=== PATIENT | female | born 1935 | race Caucasian/White ===

== ENCOUNTER 2017-03-17 15:15 | Outpatient (CLI) | payer MEDICARE ==
--- NOTE | 2017-03-18 10:32 | Ultrasound Report ---
BLADDER ULTRASOUND: 03/17/2017 CLINICAL INDICATION: Botox injection for neurogenic bladder, evaluate retention. TECHNIQUE: Real-time scanning was performed with marketing representative static images obtained. FINDINGS: Pre void, the urinary bladder measures 10.1 x 6.9 x 5.7 cm, yielding a prevoid volume of 2 07 mL. Bilateral ureteral jets are visualized. There is a possible calculus or calcified polyp fouzia g the posterior wall of the urinary bladder, measuring 6 mm. Postvoid residual is 106 mL. IMPRESSION: A 106 ML POSTVOID RESIDUAL. POSSIBLE BLADDER CALCULUS OR CALCIFIED POLYP ALONG THE POST ERIOR WALL. CONSIDER CORRELATION WITH CYSTOSCOPY. JOB #: [id number] EXT JOB #:[id number]
== END 2017-03-17 15:16 | disposition home or self-care (01) ==
LOC: DI 15:15
PROVIDERS: ATTEND Registered Nurse
DX: R33.9 Retention of urine, unspecified (principal)
CPT/HCPCS: 76857

== ENCOUNTER 2017-04-27 18:06 | Outpatient (CLI) | payer MEDICARE | END 2017-04-27 18:07 | disposition critical access hospital (66) | LOC: EMS 18:06 | PROVIDERS: ATTEND Surgery | DX: R55 Syncope and collapse (principal) | CPT/HCPCS: A0425; A0427 ==

== ENCOUNTER 2017-04-27 19:06 | Emergency (ER) | payer MEDICARE ==
[2017-04-27] MEDS ORDERED: SODIUM CHLORIDE 0.9% 1,000 ML IV ONE ×2 (19:15)
--- NOTE | 2017-04-27 19:20 | ED Physician Documentation ---
PD HPI SYNCOPE - Stated complaint Stated Complaint: SYNCOPE - Chief complaint Chief Complaint: Neuro - History obtained from History obtained from: Patient, Family, EMS - History of Present Illness Witnessed: Witnessed Timing - onset: Today Duration: Seconds (10) Preceding symptoms: Unknown Associated symptoms: No: Seizure, Incontinant of urine, Incontinant of stool, Headache, Vision changes, Chest pain, Palpitations, Diaphoresis, Dyspnea, Nausea / vomiting, Abdominal pain Contributing factors: Other (was on the toilet). No: Recent med change Injury occurred: None (slid off toilet. 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 (NS with EMS, EMS states BP 80/40 on scene.) Similar symptoms before: Diagnosis (states has passed out before) Review of Systems Ten Systems: 10 systems reviewed and negative Constitutional: denies: Fever, Chills Ears: denies: Ear pain Nose: denies: Rhinorrhea / runny nose, Congestion Cardiac: denies: Chest pain / pressure Respiratory: denies: Cough GI: denies: Abdominal Pain, Nausea, Vomiting, Diarrhea Skin: denies: Rash Musculoskeletal: reports: Neck pain (chronic, unchanged.) Neurologic: denies: Generalized weakness, Focal weakness, Numbness, Seizure, Confused, Altered mental status PD PAST MEDICAL HISTORY - Past Medical History Past Medical History: Yes Neuro: CVA, Other : Other Psych: Depression - Past Surgical History 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, 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 HEENT: Tonsil/Adenoidectomy - Present Medications Home Medications: Ambulatory Orders Medication Instructions Recorded Confirmed Aspirin [Aspir 81] 81 mg PO DAILY 02/07/14 12/27/15 Omeprazole [PriLOSEC] 20 mg PO DAILY 02/07/14 12/27/15 Sertraline [Zoloft] 100 mg PO DAILY 02/07/14 12/27/15 Cholecalciferol [Vitamin D3] 5,000 mg PO DAILY 12/27/15 12/27/15 Melatonin 5 mg PO DAILY 12/27/15 12/27/15 Cephalexin [Keflex] 500 mg PO Q6H #28 capsule 04/27/17 - Allergies Allergies/Adverse Reactions: Allergies Allergy/AdvReac Type Severity Reaction Status Date / Time No Known Drug Allergies Allergy Verified 04/27/17 19:14 - Social History Does the pt smoke?: No Smoking Status: Never smoker Does the pt drink ETOH?: Yes Does the pt have substance abuse?: No - Immunizations Immunizations are current?: Yes - POLST Patient has POLST: No PD ED PE NORMAL - Vitals Vital signs reviewed: Yes - General General: Alert and oriented X 3, No acute distress, Well developed/nourished - HEENT HEENT: PERRL, EOMI, Moist mucous membranes, Pharynx benign - Neck Neck: Supple, no meningeal sign - Cardiac Cardiac: RRR, Strong equal pulses - Respiratory Respiratory: No respiratory distress, Clear bilaterally - Abdomen Abdomen: Soft, Non tender, Non distended - Derm Derm: Warm and dry, No rash - Extremities Extremities: No edema, No calf tenderness / cord - Neuro Neuro: Alert and oriented X 3, loading manager 2-12 intact, No motor deficit, No sensory deficit, Normal speech Eye Opening: Spontaneous Motor: Obeys Commands Verbal: Oriented GCS Score: 15 - Psych Psych: Normal mood, Normal affect Results - Vitals Vitals: Vital Signs - 24 hr 04/27/17 04/27/17 19:08 21:35 Temperature 36.2 C L 36.5 C Heart Rate 71 78 Respiratory 18 16 Rate Blood Pressure 116/58 L 137/66 H O2 Saturation 96 98 Oxygen O2 Source Room air - EKG (time done) 1925 Rate: Rate (enter#) (69) Rhythm: NSR, SVT Intervals: Normal VT QRS: Normal Ischemia: Normal ST segments, Other (early r wave transition.) - Labs Labs: Laboratory Tests 04/27/17 04/27/17 04/27/17 19:15 20:00 20:00 WBC 10.0 RBC 4.14 L Hgb 12.8 Hct 38.6 MCV 93.1 MCH 30.9 MCHC 33.2 RDW 14.6 Plt Count 239 MPV 7.8 L Neut # 8.4 H Lymph # 1.0 L [place] # 0.6 Eos # 0.1 Baso # 0.0 Absolute Nucleated RBC 0.00 Nucleated RBC % 0.0 Sodium 143 Potassium 3.5 Chloride 109 Carbon Dioxide 24 Anion Gap 10.0 BUN 19 Creatinine 0.9 Estimated GFR (MDRD) 60 L Glucose 105 H Calcium 8.1 L Total Bilirubin 0.4 AST 15 ALT 10 Alkaline Phosphatase 34 L Troponin I < 0.04 Total Protein 5.9 L Albumin 3.2 Globulin 2.7 Albumin/Globulin Ratio 1.2 Lipase 30 Urine Color Urine Clarity Urine pH Ur Specific [place] Urine Protein Urine Glucose (UA) Urine Ketones Urine Occult Blood Urine Nitrite Urine Bilirubin Urine Urobilinogen Ur Leukocyte Esterase Urine RBC Urine WBC Ur Squamous Epith Cells Urine Bacteria Ur Microscopic Review Urine Culture Comments 04/27/17 20:45 WBC RBC Hgb Hct MCV MCH MCHC RDW Plt Count MPV Neut # Lymph # [place] # Eos # Baso # Absolute Nucleated RBC Nucleated RBC % Sodium Potassium Chloride Carbon Dioxide Anion Gap BUN Creatinine Estimated GFR (MDRD) Glucose Calcium Total Bilirubin AST ALT Alkaline Phosphatase Troponin I Total Protein Albumin Globulin Albumin/Globulin Ratio Lipase Urine Color YELLOW Urine Clarity HAZY Urine pH 6.0 Ur Specific [place] 1.025 Urine Protein NEGATIVE Urine Glucose (UA) NEGATIVE Urine Ketones TRACE Urine Occult Blood TRACE-LYSE Urine Nitrite POSITIVE H Urine Bilirubin NEGATIVE Urine Urobilinogen 0.2 (NORMAL) Ur Leukocyte Esterase TRACE H Urine RBC 0-5 Urine WBC 6-10 H Ur Squamous Epith Cells FEW Squamous Urine Bacteria Many H Ur Microscopic Review INDICATED Urine Culture Comments INDICATED - Rads (name of study) cxr Radiology: Prelim report reviewed, EMP read contemporaneously, See rad report ( no acute disease) PD MEDICAL DECISION MAKING - ED course Complexity details: reviewed old records, reviewed results, re-evaluated patient , considered differential, d/w patient, d/w family ED course: Patient is an 81-year-old female who presents to the emergency department with what sounds like vasovagal syncope after passing out standing up from the toilet. No injury. Does have a UTI and given Rocephin for this. Was initially hypotensive, responded well to fluids. She feels to her normal baseline at this point. She does not want stay in the hospital. She is well- appearing, nontoxic. Afebrile. Has been is comfortable taking her home at this time. Patient and family counseled regarding signs and symptoms for which I believe and urgent re-evaluation would be necessary. Patient with good understanding of and agreement to plan and is comfortable going home at this time This document was made in part using voice recognition software. While efforts are made to proofread this document, sound alike and grammatical errors may occur. Departure - Departure Disposition: 01 Home, Self Care Clinical Impression: Vasovagal syncope, Dehydration Urinary tract infection Qualifiers: Urinary tract infection type: acute cystitis Hematuria presence: without hematuria Qualified Code(s): N30.00 - Acute cystitis without hematuria Condition: Good Instructions: ED Syncope Vasovagal, ED UTI Cystitis Female Follow-Up: Millie Frazier ARNP [Primary Care Provider] - Within 1 week Prescriptions: Cephalexin [Keflex] 500 mg PO Q6H #28 capsule Comments: Take all antibiotics until gone. Return if you worsen. Drink plenty of fluids at home.
--- NOTE | 2017-04-27 20:09 | XRAY Preliminary Report ---
Exam: XR CHEST 1 VIEW IMPRESSION: No acute cardiopulmonary disease is seen. [facility] SITE ID: [id number]
--- NOTE | 2017-04-27 20:11 | XRAY Report ---
EXAM: CHEST RADIOGRAPHY EXAM DATE: 04/27/2017 07:58 PM. CLINICAL HISTORY: Syncope. COMPARISON: Chest 10/27/2015. TECHNIQUE: 1 view. FINDINGS: Lungs/Pleura: No focal opacities evident. No pleural effusion. No pneumothorax. Mediastinum: Normal heart size. Aortopulmonary window calcified lymph node again noted. IMPRESSION: No acute cardiopulmonary disease is seen. [facility] Referring Provider Line: [phone] SITE ID: [id number]
[2017-04-27 20:35] LABS: BASOPHILS % (AUTO) 0.5 %; EOSINOPHILS # (AUTO) 0.1 10^3/uL (0.0-0.7); EOSINOPHILS % (AUTO) 0.7 %; HCT - HEMATOCRIT 38.6 % (37.0-47.0); HGB - HEMOGLOBIN 12.8 g/dL (12.0-16.0); LYMPHOCYTES % (AUTO) 9.9 %; MEAN CORPUSCULAR HEMOGLOBIN 30.9 pg (27.0-31.0); MEAN CORPUSCULAR HGB CONC 33.2 g/dL (32.0-36.0); MEAN CORPUSCULAR VOLUME 93.1 fL (81.0-99.0); MEAN PLATELET VOLUME 7.8 fL (7.9-10.8); MONOCYTES # (AUTO) 0.6 10^3/uL (0.0-1.0); MONOCYTES % (AUTO) 5.6 %; NEUTROPHILS # (AUTO) 8.4 10^3/uL (1.5-6.6); NEUTROPHILS % (AUTO) 83.3 %; RED BLOOD COUNT 4.14 10^6/uL (4.20-5.40); RED CELL DISTRIBUTION WIDTH 14.6 % (12.0-15.0)
[2017-04-27 20:40] LABS: ALBUMIN/GLOBULIN RATIO 1.2 (1.0-2.2); BILIRUBIN,TOTAL 0.4 mg/dL (0.2-1.0); CALCIUM 8.1 mg/dL (8.5-10.3); CREATININE 0.9 mg/dL (0.4-1.0); POTASSIUM 3.5 mmol/L (3.5-5.0); TOTAL PROTEIN 5.9 g/dL (6.7-8.2)
[2017-04-27 20:57] LABS: BILIRUBIN,URINE NEGATIVE (NEGATIVE)
[2017-04-27 21:02] LABS: UA w/ MICROSCOPIC CHARGE YES
[2017-04-27] MEDS ORDERED: cefTRIAXone 1 GM VIAL IVP STA (21:08)
[2017-04-27 21:15] LABS: UR CULTURE IF IND INDICATED
[2017-04-27] MEDS ORDERED: cefTRIAXone 1 GM VIAL ONE (21:21)
[2017-04-27 21:36] VITALS: BP 137/66
== END 2017-04-27 21:30 | disposition home or self-care (01) ==
LOC: EDUNIT# → EDBD → ED 19:06
DX: R55 Syncope and collapse (principal); E86.0 Dehydration; N30.00 Acute cystitis without hematuria; Z86.73 Personal history of transient ischemic attack (TIA), and cerebral infarction without residual deficits; Z79.82 Long term (current) use of aspirin
CPT/HCPCS: 36415; 51701; 71010; 80053; 81001; 81003; 83690; 84484; 85025; 87077; 87086; 93005; 96361; 96374; 99284

== ENCOUNTER 2017-08-21 14:52 | Outpatient (CLI) | payer MEDICARE ==
--- NOTE | 2017-08-22 10:20 | XRAY Report ---
LEFT RIBS: 08/21/2017 COMPARISON: Frontal chest 04/27/2017. INDICATION: Fall, rib pain, back pain. TECHNIQUE: Three views. FINDINGS: There is slight cortical irregularity of the left lateral 7th rib, which may represent a fracture. No pneumothorax. No other acute findings. IMPRESSION: LIKELY FRACTURE OF THE LATERAL LEFT 7TH RIB. TD: 08/22/2017 10:19 [facility]
--- NOTE | 2017-08-22 10:29 | XRAY Report ---
THORACIC SPINE: 08/21/2017 COMPARISON: Two view chest 10/27/2015. INDICATION: Rib and back pain. TECHNIQUE: Two views. FINDINGS: There is minimal compression of the T11 vertebral body. Likely compression of L1 as seen on prior chest views is obscured by the abdomen on the current study. Normal alignment in other regards. There are mild degenerative changes of the thoracic spine. IMPRESSION: MINIMAL COMPRESSION OF THE T11 VERTEBRAL BODY IS NEAR THE PAIN MARKER. CORRELATE CLINICALLY. FOLLOWUP IS AVAILABLE INDICATED. LIKELY COMPRESSION FRACTURE OF L1 IS NOT IMAGED ON TODAY'S EXAM. TD: 08/22/2017 10:28 [facility]
== END 2017-08-21 14:53 | disposition home or self-care (01) ==
LOC: DI.S 14:52
PROVIDERS: ATTEND Registered Nurse
DX: R07.81 Pleurodynia (principal); M48.54XA Collapsed vertebra, not elsewhere classified, thoracic region, initial encounter for fracture
CPT/HCPCS: 72070

== ENCOUNTER 2017-10-16 15:18 | Outpatient (CLI) | payer MEDICARE ==
--- NOTE | 2017-10-17 11:02 | XRAY Report ---
REVISED REPORT: MOVE TO CHECK-IN [id number] FOR 10/16/2017 ORIG. SIGNED 10/20/2017 @1237, REVISED 10/28/2017 jll TWO-VIEW CHEST: 10/16/2017 COMPARISON: Thoracic spine 08/21/2017. INDICATION: Pleurodynia. REPORT: Two views. FINDINGS: Clear lungs. No pneumothorax or pleural effusion. Mediastinum unremarkable despite previous compression fractures. No obvious compression fracture or other bony abnormality is demonstrated. IMPRESSION: NO EVIDENCE OF ACUTE THORACIC PROCESS. TD: 10/17/2017 11:01 LEV
--- NOTE | 2017-10-28 16:31 | XRAY Report ---
TWO-VIEW CHEST: 10/16/2017 COMPARISON: Thoracic spine 08/21/2017. INDICATION: Pleurodynia. REPORT: Two views. FINDINGS: Clear lungs. No pneumothorax or pleural effusion. Mediastinum unremarkable despite previous compression fractures. No obvious compression fracture or other bony abnormality is demonstrated. IMPRESSION: NO EVIDENCE OF ACUTE THORACIC PROCESS. REVISED REPORT: CORRECTED CHECK-IN [id number] FOR 10/16/2017 ORIG. SIGNED 10/20/2017 @1237, REVISED 10/28/2017 [email or web address] TD: 10/17/2017 11:01 LEV
== END 2017-10-16 15:19 | disposition home or self-care (01) ==
LOC: DI.S 15:18
PROVIDERS: ATTEND Internal Medicine
DX: R07.81 Pleurodynia (principal)
CPT/HCPCS: 71046

== ENCOUNTER 2018-06-01 09:53 | Outpatient (CLI) | payer MEDICARE | END 2018-06-02 09:54 | disposition critical access hospital (66) | LOC: EMS 09:53 | PROVIDERS: ATTEND Surgery | DX: R41.0 Disorientation, unspecified (principal); R53.1 Weakness; R39.9 Unspecified symptoms and signs involving the genitourinary system | CPT/HCPCS: A0425; A0427 ==

== ENCOUNTER 2018-06-01 09:57 | Emergency (ER) | payer MEDICARE ==
--- NOTE | 2018-06-01 10:07 | ED Physician Documentation ---
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 HEENT: Tonsil/Adenoidectomy - Present Medications Home Medications: Ambulatory Orders Medication Instructions Recorded Confirmed Aspirin [Aspir 81] 81 mg PO DAILY 02/07/14 12/27/15 Omeprazole [PriLOSEC] 20 mg PO DAILY 02/07/14 12/27/15 Melatonin 5 mg PO DAILY 12/27/15 12/27/15 Cannabidiol (Cbd) Extract 06/01/18 [Epidiolex] Cephalexin [Keflex] 500 mg PO Q6H #28 capsule 06/01/18 Venlafaxine HCl 9 mg PO 06/01/18 - Allergies Allergies/Adverse Reactions: Allergies Allergy/AdvReac Type Severity Reaction Status Date / Time No Known Drug Allergies Allergy Verified 06/01/18 10:56 - Social History Does the pt smoke?: No Smoking Status: Never smoker Does the pt drink ETOH?: Yes Does the pt have substance abuse?: No - Immunizations Immunizations are current?: Yes - POLST Patient has POLST: No PD ED PE NORMAL - Vitals Vital signs reviewed: Yes - General General: Alert and oriented X 3 - HEENT HEENT: Atraumatic, PERRL - Neck Neck: Supple, no meningeal sign - Cardiac Cardiac: RRR - Respiratory Respiratory: No respiratory distress - Abdomen Abdomen: Soft, Non tender - Derm Derm: Normal color - Extremities Extremities: Normal ROM s pain - Neuro Neuro: Alert and oriented X 3, booth operator 2-12 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, No motor deficit, No sensory deficit, Normal speech, Other (NIHSS zero ) Eye Opening: Spontaneous Motor: Obeys Commands Verbal: Oriented GCS Score: 15 Results - Vitals Vitals: Vital Signs - 24 hr 06/01/18 06/01/18 06/01/18 10:05 11:00 12:30 Temperature 36.8 C Heart Rate 73 74 80 Respiratory 16 16 16 Rate Blood Pressure 133/75 H 147/84 H 149/82 H O2 Saturation 97 97 97 Oxygen O2 Source Room air - Labs Labs: Laboratory Tests 06/01/18 06/01/18 06/01/18 10:41 10:48 10:48 WBC 7.4 RBC 4.28 Hgb 13.6 Hct 40.5 MCV 94.5 MCH 31.8 H MCHC 33.7 RDW 14.0 Plt Count 243 MPV 7.6 L Neut # (Auto) 5.7 Lymph # (Auto) 1.1 L [place] # (Auto) 0.5 Eos # (Auto) 0.0 Baso # (Auto) 0.0 Absolute Nucleated RBC 0.00 Nucleated RBC % 0.0 Sodium 145 Potassium 4.1 Chloride 113 H Carbon Dioxide 27 Anion Gap 5.0 L BUN 34 H Creatinine 1.3 H Estimated GFR (MDRD) 39 L Glucose 108 H Calcium 9.3 Troponin I Urine Color YELLOW Urine Clarity CLOUDY Urine pH 6.0 Ur Specific [place] >=1.030 H Urine Protein TRACE Urine Glucose (UA) NEGATIVE Urine Ketones TRACE Urine Occult Blood SMALL H Urine Nitrite NEGATIVE Urine Bilirubin NEGATIVE Urine Urobilinogen 0.2 (NORMAL) Ur Leukocyte Esterase SMALL H Urine RBC 6-10 H Urine WBC >25 H Ur Squamous Epith Cells MOD Squamous H Urine Bacteria Moderate H Ur Microscopic Review INDICATED Urine Culture Comments NOT INDICATED 06/01/18 10:48 WBC RBC Hgb Hct MCV MCH MCHC RDW Plt Count MPV Neut # (Auto) Lymph # (Auto) [place] # (Auto) Eos # (Auto) Baso # (Auto) Absolute Nucleated RBC Nucleated RBC % Sodium Potassium Chloride Carbon Dioxide Anion Gap BUN Creatinine Estimated GFR (MDRD) Glucose Calcium Troponin I < 0.04 Urine Color Urine Clarity Urine pH Ur Specific [place] Urine Protein Urine Glucose (UA) Urine Ketones Urine Occult Blood Urine Nitrite Urine Bilirubin Urine Urobilinogen Ur Leukocyte Esterase Urine RBC Urine WBC Ur Squamous Epith Cells Urine Bacteria Ur Microscopic Review Urine Culture Comments - Rads (name of study) CTH Radiology: See rad report (no acute) PD MEDICAL DECISION MAKING - ED course ED course: CTH neg UA + hemodynamically stable d/w who felt safe taking her home for [place] Departure - Departure Disposition: Home, Self Care Clinical Impression: Dehydration, Renal insufficiency Urinary tract infection Qualifiers: Urinary tract infection type: acute cystitis Hematuria presence: without hematuria Qualified Code(s): N30.00 - Acute cystitis without hematuria Instructions: ED Dehydration, ED UTI Cystitis Female Follow-Up: Millie Frazier ARNP [Physician No Access] - Prescriptions: Cephalexin [Keflex] 500 mg PO Q6H #28 capsule Comments: The CT scan of your head was fine. I believe the confusion is due to a urine infection and dehydration. You were given IV fluids in the ER and antibiotics. I think is is OK for you to go home with your family for [place]. But you need to rest and take it easy. You will be weakened from your infection so please have someone assist you when transferring and ambulating. Follow up with your PMD Friday for a recheck. You will need to have your kidney function rechecked when you are feeling better The ER staff will call you if the urine culture indicates a need to change antibiotics Return if worse Discharge Date/Time: 06/01/18 12:46
--- NOTE | 2018-06-01 10:46 | CT Report ---
Reason: AMS Procedure Date: 06/01/2018 Accession Number: [id number] / [id number] Procedure: CT - Head W/O CPT Code: FULL RESULT: EXAM: CT HEAD WITHOUT CONTRAST EXAM DATE: 06/01/2018 10:18 AM. CLINICAL HISTORY: Altered mental status. COMPARISON: 12/27/2015. TECHNIQUE: Multiaxial CT images were obtained from the foramen magnum to the vertex. Reformats: Sagittal and coronal. IV contrast: None. In accordance with CT protocol optimization, one or more of the following dose reduction techniques were utilized for this exam: automated exposure control, adjustment of mA and/or KV based on patient size, or use of iterative reconstructive technique. FINDINGS: Parenchyma: No acute intraparenchymal hemorrhage. No evidence of mass, midline shift. Grande-white differentiation is distinct. Stable right frontal and temporoparietal encephalomalacia. Extraaxial Spaces: Normal for age. No subdural or epidural collections identified. Ventricles: Stable configuration. Sinuses and Orbits: Imaged paranasal sinuses, orbits, and mastoids show no significant abnormality. Bones: No evidence of fracture or calvarial defect. Other: None. IMPRESSION: No acute intracranial hemorrhage or herniation. [facility]
[2018-06-01 11:02] LABS: BASOPHILS % (AUTO) 0.4 %; EOSINOPHILS % (AUTO) 0.5 %; HGB - HEMOGLOBIN 13.6 g/dL (12.0-16.0); LYMPHOCYTES # (AUTO) 1.1 10^3/uL (1.5-3.5); LYMPHOCYTES % (AUTO) 15.1 %; MEAN CORPUSCULAR HEMOGLOBIN 31.8 pg (27.0-31.0); MEAN CORPUSCULAR HGB CONC 33.7 g/dL (32.0-36.0); MEAN CORPUSCULAR VOLUME 94.5 fL (81.0-99.0); MEAN PLATELET VOLUME 7.6 fL (7.9-10.8); MONOCYTES # (AUTO) 0.5 10^3/uL (0.0-1.0); MONOCYTES % (AUTO) 6.9 %; NEUTROPHILS # (AUTO) 5.7 10^3/uL (1.5-6.6); NEUTROPHILS % (AUTO) 77.1 %; PLT - PLATELET COUNT 243 10^3/uL (130-450); RED BLOOD COUNT 4.28 10^6/uL (4.20-5.40); WHITE BLOOD COUNT 7.4 x10^3/uL (4.8-10.8)
[2018-06-01 11:04] LABS: BILIRUBIN,URINE NEGATIVE (NEGATIVE); GLUCOSE, URINE (UA) NEGATIVE (NEGATIVE); KETONES,URINE (UA) TRACE mg/dL (NEGATIVE); LEUKOCYTE ESTERASE, URINE SMALL (NEGATIVE); NITRITE,URINE NEGATIVE (NEGATIVE); OCCULT BLOOD,URINE SMALL (NEGATIVE); PROTEIN,URINE TRACE mg/dL (NEGATIVE); UROBILINOGEN,URINE 0.2 (NORMAL) E.U./dL (NORMAL)
[2018-06-01 11:05] LABS: CLARITY,URINE CLOUDY (CLEAR)
[2018-06-01 11:06] LABS: CALCIUM 9.3 mg/dL (8.5-10.3); CREATININE 1.3 mg/dL (0.4-1.0)
[2018-06-01 11:19] LABS: BACTERIA,URINE Moderate /HPF (None Seen); SQUAMOUS EPITHELIAL CELL,UR MOD Squamous (<= Few)
[2018-06-01] MEDS ORDERED: cefTRIAXone 1 GM in SODIUM CHLORIDE 0.9% MINIBAG 100 ML IV STA (11:57)
[2018-06-01 16:38] VITALS: BP 149/82
== END 2018-06-01 12:46 | disposition home or self-care (01) ==
LOC: EDUNIT# → ED 09:57
DX: N30.00 Acute cystitis without hematuria (principal); E86.0 Dehydration; N28.9 Disorder of kidney and ureter, unspecified; Z79.82 Long term (current) use of aspirin
CPT/HCPCS: 36415; 51701; 70450; 80048; 81001; 81003; 84484; 85025; 87086; 96365; 99283

== ENCOUNTER 2018-11-11 19:29 | Outpatient (CLI) | payer MEDICARE | END 2018-11-11 19:30 | disposition critical access hospital (66) | LOC: EMS 19:29 | PROVIDERS: ATTEND Surgery | DX: R50.9 Fever, unspecified (principal); R11.0 Nausea | CPT/HCPCS: A0425; A0429 ==

== ENCOUNTER 2018-11-11 19:50 | Emergency (ER) | payer MEDICARE ==
--- NOTE | 2018-11-11 20:06 | ED Physician Documentation ---
History of Present Illness - Stated complaint Stated Complaint: WEAKNESS - Chief complaint Chief Complaint: Fever - History obtained from History obtained from: Patient (limited information (HPI/ROS) due to dementia), EMS, Caregiver - History of Present Illness Timing: Today Pain level now: 2 (chronic LBP) Improved by: nothing Worsened by: no exacerbating factors - Additonal information Additional information: [facility] shaking chills and foul odor to urine. These symptoms/signs began today. 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 HEENT: Tonsil/Adenoidectomy - Present Medications Home Medications: Ambulatory Orders Medication Instructions Recorded Confirmed Aspirin [Aspir 81] 81 mg PO DAILY 02/07/14 12/27/15 Omeprazole [PriLOSEC] 20 mg PO DAILY 02/07/14 12/27/15 Melatonin 5 mg PO DAILY 12/27/15 12/27/15 Cannabidiol (Cbd) Extract 06/01/18 [Epidiolex] Cephalexin [Keflex] 500 mg PO Q6H #28 capsule 06/01/18 Venlafaxine HCl 9 mg PO 06/01/18 Cephalexin [Keflex] 500 mg PO Q6H #28 capsule 11/11/18 - Allergies Allergies/Adverse Reactions: Allergies Allergy/AdvReac Type Severity Reaction Status Date / Time No Known Drug Allergies Allergy Verified 11/11/18 20:00 - Social History Does the pt smoke?: No Smoking Status: Never smoker Does the pt drink ETOH?: Yes Does the pt have substance abuse?: No - Immunizations Immunizations are current?: Yes - POLST Patient has POLST: No PD ED PE NORMAL - Vitals Vital signs reviewed: Yes - General General: No acute distress, Well developed/nourished, Other (awake, alert, oriented x 2) - HEENT HEENT: Moist mucous membranes - Neck Neck: Supple, no meningeal sign - Cardiac Cardiac: RRR, No murmur - Respiratory Respiratory: No respiratory distress, Clear bilaterally - Abdomen Abdomen: Soft, Non tender, Non distended - Back Back: No CVA TTP - Derm Derm: Normal color, Warm and dry - Extremities Extremities: No edema Results - Vitals Vitals: Vital Signs - 24 hr 11/11/18 11/11/18 11/11/18 19:50 20:00 21:24 Temperature 37.4 C Heart Rate 96 96 101 H Respiratory 18 16 17 Rate Blood Pressure 150/70 H 130/63 154/70 H O2 Saturation 100 100 99 11/11/18 11/11/18 21:39 22:11 Temperature 37.6 C H Heart Rate 103 H 101 H Respiratory 17 16 Rate Blood Pressure 141/75 H 125/81 H O2 Saturation 97 94 Oxygen O2 Source Room air - Labs Labs: Laboratory Tests 11/11/18 11/11/18 11/11/18 19:55 19:55 19:55 WBC 3.2 L RBC 4.14 L Hgb 12.7 Hct 38.4 MCV 92.8 MCH 30.7 MCHC 33.1 RDW 14.1 Plt Count 163 MPV 7.6 L Neut # (Auto) 3.0 Lymph # (Auto) 0.2 L [place] # (Auto) 0.0 Eos # (Auto) 0.0 Baso # (Auto) 0.0 Absolute Nucleated RBC 0.01 Nucleated RBC % 0.3 Sodium 140 Potassium 4.0 Chloride 104 Carbon Dioxide 22 Anion Gap 14.0 H BUN 26 H Creatinine 1.0 Estimated GFR (MDRD) 53 L Glucose 104 H Lactic Acid 3.1 H* Calcium 9.3 Urine Color Urine Clarity Urine pH Ur Specific [place] Urine Protein Urine Glucose (UA) Urine Ketones Urine Occult Blood Urine Nitrite Urine Bilirubin Urine Urobilinogen Ur Leukocyte Esterase Urine RBC Urine WBC Urine WBC Clumps Ur Squamous Epith Cells Urine Bacteria Ur Microscopic Review Urine Culture Comments 11/11/18 20:15 WBC RBC Hgb Hct MCV MCH MCHC RDW Plt Count MPV Neut # (Auto) Lymph # (Auto) [place] # (Auto) Eos # (Auto) Baso # (Auto) Absolute Nucleated RBC Nucleated RBC % Sodium Potassium Chloride Carbon Dioxide Anion Gap BUN Creatinine Estimated GFR (MDRD) Glucose Lactic Acid Calcium Urine Color YELLOW Urine Clarity HAZY Urine pH 5.5 Ur Specific [place] 1.020 Urine Protein NEGATIVE Urine Glucose (UA) NEGATIVE Urine Ketones NEGATIVE Urine Occult Blood SMALL H Urine Nitrite POSITIVE H Urine Bilirubin NEGATIVE Urine Urobilinogen 0.2 (NORMAL) Ur Leukocyte Esterase NEGATIVE Urine RBC 0-5 Urine WBC 11-25 H Urine WBC Cl[place] PRESENT Ur Squamous Epith Cells MANY Squamous H Urine Bacteria Many H Ur Microscopic Review INDICATED Urine Culture Comments NOT INDICATED PD MEDICAL DECISION MAKING - ED course Complexity details: reviewed old records, reviewed results, re-evaluated patient, considered differential, d/w patient, d/w family Departure - Departure Disposition: 01 Home, Self Care Clinical Impression: Urinary tract infection Condition: Good Instructions: ED UTI Cystitis Female Prescriptions: Cephalexin [Keflex] 500 mg PO Q6H #28 capsule Discharge Date/Time: 11/11/18 22:32
[2018-11-11 20:22] LABS: BASOPHILS % (AUTO) 0.3 %; EOSINOPHILS % (AUTO) 0.2 %; HGB - HEMOGLOBIN 12.7 g/dL (12.0-16.0); LYMPHOCYTES # (AUTO) 0.2 10^3/uL (1.5-3.5); LYMPHOCYTES % (AUTO) 6.9 %; MEAN CORPUSCULAR HEMOGLOBIN 30.7 pg (27.0-31.0); MEAN CORPUSCULAR HGB CONC 33.1 g/dL (32.0-36.0); MEAN CORPUSCULAR VOLUME 92.8 fL (81.0-99.0); MEAN PLATELET VOLUME 7.6 fL (7.9-10.8); MONOCYTES % (AUTO) 0.6 %; PLT - PLATELET COUNT 163 10^3/uL (130-450); RED BLOOD COUNT 4.14 10^6/uL (4.20-5.40); RED CELL DISTRIBUTION WIDTH 14.1 % (12.0-15.0); WHITE BLOOD COUNT 3.2 x10^3/uL (4.8-10.8)
[2018-11-11] MEDS ORDERED: SODIUM CHLORIDE 0.9% 500 ML IV STA (20:27)
[2018-11-11 20:29] LABS: CALCIUM 9.3 mg/dL (8.5-10.3)
[2018-11-11 20:37] LABS: BILIRUBIN,URINE NEGATIVE (NEGATIVE); GLUCOSE, URINE (UA) NEGATIVE (NEGATIVE); KETONES,URINE (UA) NEGATIVE (NEGATIVE); LEUKOCYTE ESTERASE, URINE NEGATIVE (NEGATIVE); NITRITE,URINE POSITIVE (NEGATIVE); OCCULT BLOOD,URINE SMALL (NEGATIVE); PH,URINE 5.5 PH (5.0-7.5); PROTEIN,URINE NEGATIVE (NEGATIVE); UROBILINOGEN,URINE 0.2 (NORMAL) E.U./dL (NORMAL)
[2018-11-11 20:38] LABS: CLARITY,URINE HAZY (CLEAR)
[2018-11-11 20:50] LABS: BACTERIA,URINE Many /HPF (None Seen); RBC,URINE 0-5 /HPF (0-5); SQUAMOUS EPITHELIAL CELL,UR MANY Squamous (<= Few); WBC CLUMPS,URINE PRESENT
[2018-11-11] MEDS ORDERED: cefTRIAXone 1 GM in SODIUM CHLORIDE 0.9% MINIBAG 100 ML IV STA (21:11)
[2018-11-11] MEDS ORDERED: cephALEXin 250 MG CAPSULE PO STA (21:11)
[2018-11-11 22:12] VITALS: BP 125/81
== END 2018-11-11 22:32 | disposition home or self-care (01) ==
LOC: EDUNIT# → ED 19:50
DX: N39.0 Urinary tract infection, site not specified (principal); F03.90 Unspecified dementia, unspecified severity, without behavioral disturbance, psychotic disturbance, mood disturbance, and anxiety
CPT/HCPCS: 36415; 51701; 80048; 81001; 83605; 85025; 87086; 96361; 96365; 99283; A9270; 81003

== ENCOUNTER 2019-03-09 13:44 | Outpatient (CLI) | payer MEDICARE | END 2019-03-09 13:45 | disposition critical access hospital (66) | LOC: EMS 13:44 | PROVIDERS: ATTEND Surgery | DX: M54.5 Low back pain (principal); M25.551 Pain in right hip; W18.30XA Fall on same level, unspecified, initial encounter; Y93.01 Activity, walking, marching and hiking; Y92.22 Religious institution as the place of occurrence of the external cause | CPT/HCPCS: A0425; A0429 ==

== ENCOUNTER 2019-03-09 14:35 | Emergency (ER) | payer MEDICARE ==
[2019-03-09] MEDS ORDERED: ACETAMINOPHEN 325 MG TABLET PO STA (14:48)
[2019-03-09] MEDS ORDERED: KETOROLAC 30 MG/ML VIAL IM STA (14:48)
--- NOTE | 2019-03-09 14:48 | ED Physician Documentation ---
PD HPI Fall - Stated complaint Stated Complaint: GLF - Chief complaint Chief Complaint: General - History of Present Illness Mechanism of injury: Lost balance Fall distance: Standing position (She was sitting in one chair and stood up to go to change into another chair and fell over. She does remember the fall. She did not feel dizzy or lightheaded. She landed to her right side and back and has pain at the right lateral hip as well as the thoracic and lumbar spine areas. She was helped into a standing position was able to stand but was hurting in her mid back and right hip particularly. She did not have any headache. She denies any numbness or weakness. She did not have any loss of consciousness. She does not take any blood thinners.) Where injury occurred: Other ([place] building) Timing - onset: Today Injury(ies) location: Back, Right Lower Extremity (lateral hip) Quality of pain: Pain, Aching (mostly lateral right hip, but also hurting in neck/scapluar area and lower back. Did not hit head.) Associated symptoms: No: LOC, AMS Worsens with: Movement, Other (walking, mostly the step off part of gait, hurting in hip.) Contributing factors: No: Anticoagulated Similar symptoms before: Has not had sx before Review of Systems Constitutional: denies: Fever Nose: denies: Rhinorrhea / runny nose, Congestion Throat: denies: Sore throat Respiratory: denies: Cough GI: denies: Nausea, Vomiting, Diarrhea Skin: denies: Abrasion (s), Laceration (s) Musculoskeletal: reports: Neck pain, Back pain, Extremity pain (right hip) Neurologic: reports: Confused (baseline). 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 HEENT: Tonsil/Adenoidectomy - Present Medications Home Medications: Ambulatory Orders Medication Instructions Recorded Confirmed Aspirin [Aspir 81] 81 mg PO DAILY 02/07/14 12/27/15 Omeprazole [PriLOSEC] 20 mg PO DAILY 02/07/14 12/27/15 Melatonin 5 mg PO DAILY 12/27/15 12/27/15 Cannabidiol (Cbd) Extract 06/01/18 [Epidiolex] Cephalexin [Keflex] 500 mg PO Q6H #28 capsule 06/01/18 Venlafaxine HCl 9 mg PO 06/01/18 Cephalexin [Keflex] 500 mg PO Q6H #28 capsule 11/11/18 - Allergies Allergies/Adverse Reactions: Allergies Allergy/AdvReac Type Severity Reaction Status Date / Time No Known Drug Allergies Allergy Verified 11/11/18 20:00 - Living Situation Living Situation: reports: With family Living Arrangement: reports: Assisted living - Social History Does the pt smoke?: No Smoking Status: Never smoker Does the pt drink ETOH?: Yes Does the pt have substance abuse?: No - Immunizations Immunizations are current?: Yes - POLST Patient has POLST: No PD ED PE NORMAL - Vitals Vital signs reviewed: Yes - General General: No acute distress, Well developed/nourished, Other (alert but poor short term memory. Does seem to remember the fall and felt okay prior, just lost balance. ) - HEENT HEENT: Atraumatic - Neck Neck: Supple, no meningeal sign, No adenopathy, Other (some tenderness lower cervical area without deformity.) - Cardiac Cardiac: RRR, No murmur - Respiratory Respiratory: Clear bilaterally - Abdomen Abdomen: Soft, Non tender - Back Back: Other (tender in mid thoracic and also thoracolumbar areas. No defomrity. Right lateral hip with some tenderness, but no pain on passive ROM nor with impaction testing right hip. ) - Derm Derm: Normal color, Warm and dry - Extremities Extremities: Normal ROM s pain, No edema, No calf tenderness / cord - Neuro Neuro: No motor deficit, No sensory deficit, Normal speech Eye Opening: Spontaneous Motor: Obeys Commands Verbal: Oriented GCS Score: 15 - Psych Psych: Normal mood Results - Vitals Vitals: Oxygen O2 Source Room air - Rads (name of study) head CT Radiology: Prelim report reviewed (no bleeding), See rad report pelvic CT Radiology: Prelim report reviewed (osteopenic, no visible fractures), See rad report spine (C,T,L) Radiology: Prelim report reviewed (no fractures. ), See rad report PD MEDICAL DECISION MAKING - ED course Complexity details: reviewed results (no fractures nor bleeding), re-evaluated patient (patient doing okay after oral meds. Son in ER to bring her home. ), considered differential, d/w patient Departure - Departure Disposition: 01 Home, Self Care Clinical Impression: Fall from slip, trip, or stumble Qualifiers: Encounter type: initial encounter Qualified Code(s): W01.0XXA - Fall on same level from slipping, tripping and stumbling without subsequent striking against object, initial encounter Contusion of right hip Qualifiers: Encounter type: initial encounter Qualified Code(s): S70.01XA - Contusion of right hip, initial encounter Strain of mid-back Qualifiers: Encounter type: initial encounter Qualified Code(s): S29.012A - Strain of m uscle and tendon of back wall of thorax, initial encounter Condition: Stable Record reviewed to determine appropriate education?: Yes Instructions: ED Sprain Strain Lumbar, ED Contusion Hip Follow-Up: Luiz Figueroa DPM [Primary Care Provider] - Comments: No obvious fractures or bleeding on your CT scans. You will be sore. Tylenol 650 mg 4 times a day for the next several days. Add ibuprofen or Aleve if needed for pains. Ice or heat as feels best. Recheck if not better over the next several days to week Discharge Date/Time: 03/09/19 16:44
--- NOTE | 2019-03-09 15:34 | CT Report ---
Reason: fall with neck, thoracic, and lumbar pains Procedure Date: 03/09/2019 Accession Number: [id number] / [id number] Procedure: CT - CERVICAL SPINE WO CPT Code: FULL RESULT: EXAM: CT CERVICAL SPINE WITHOUT CONTRAST DATE: 03/09/2019 03:15 PM. HISTORY: Fall with neck, thoracic, and lumbar pains. COMPARISONS: HEAD W/O 06/01/2018 10:06 AM. TECHNIQUE: Thin-section axial images were acquired of the cervical spine without contrast. Post-processing: Coronal and sagittal reformats. Other: None. In accordance with CT protocol optimization, one or more of the following dose reduction techniques were utilized for this exam: automated exposure control, adjustment of mA and/or KV based on patient size, or use of iterative reconstructive technique. FINDINGS: Alignment: No scoliosis or spondylolisthesis. Bones: No fracture or bone lesion. Musculature: Normal. No fatty atrophy. Other: The paravertebral and prevertebral soft tissues are unremarkable. The lung apices are clear. IMPRESSION: No acute displaced fracture or malalignment, in clinical setting of trauma. RADIA
--- NOTE | 2019-03-09 15:34 | CT Report ---
Reason: fall with neck, thoracic, and lumbar pains Procedure Date: 03/09/2019 Accession Number: [id number] / [id number] Procedure: CT - HEAD WO CPT Code: FULL RESULT: EXAM: CT HEAD EXAM DATE: 03/09/2019 03:15 PM. CLINICAL HISTORY: Fall with neck, thoracic, and lumbar pains. COMPARISON: HEAD W/O 06/01/2018 10:06 AM. TECHNIQUE: Multiaxial CT images were obtained from the foramen magnum to the vertex. Reformats: Sagittal and coronal. IV contrast: None. In accordance with CT protocol optimization, one or more of the following dose reduction techniques were utilized for this exam: automated exposure control, adjustment of mA and/or KV based on patient size, or use of iterative reconstructive technique. FINDINGS: Parenchyma: There is right frontotemporal encephalomalacia, likely from prior infarct. There is left temporal encephalomalacia. No evidence of parenchymal hemorrhage. No acute loss of miller-white matter differentiation. No mass-effect. Periventricular white matter hypodensity likely represents small vessel ischemic disease. Extraaxial Spaces: Normal for age. No subdural or epidural collections identified. Ventricles: Normal in size and position. Sinuses and Orbits: Imaged paranasal sinuses, orbits, and mastoids show no significant abnormality. Bones: No evidence of fracture or calvarial defect. Other: None. IMPRESSION: No acute intracranial CT abnormality. RADIA
--- NOTE | 2019-03-09 15:39 | CT Report ---
Reason: fall with neck, thoracic, and lumbar pains Procedure Date: 03/09/2019 Accession Number: [id number] / [id number] Procedure: CT - THORACIC SPINE WO CPT Code: FULL RESULT: EXAM: CT THORACIC SPINE WITHOUT CONTRAST EXAM DATE: 03/09/2019 03:15 PM. CLINICAL HISTORY: Fall with neck, thoracic, and lumbar pains. COMPARISONS: THORACIC SPINE 2 VIEW 08/21/2017 3:48 PM. TECHNIQUE: Thin-section axial images were acquired of the thoracic spine from C7 to L1 without contrast. Post-processing: Coronal and sagittal reformats. Other: None. In accordance with CT protocol optimization, one or more of the following dose reduction techniques were utilized for this exam: automated exposure control, adjustment of mA and/or KV based on patient size, or use of iterative reconstructive technique. FINDINGS: Alignment: No scoliosis or spondylolisthesis. Bones: No fracture or bone lesion. Musculature: Normal. No fatty atrophy. Other: The visualized lungs, mediastinum, and abdominal cavity are unremarkable. Age indeterminate superior end plate compression of L1 with 25% loss of body height. Bibasilar atelectasis and scarring in the lungs. Old healed fracture of right posterior 10th and 11th ribs. IMPRESSION: No acute displaced fracture of thoracic spine. no malalignment. Age indeterminate superior end plate compression of L1 with 25% loss of body height. RADIA
--- NOTE | 2019-03-09 15:42 | CT Report ---
Reason: fall with neck, thoracic, and lumbar pains Procedure Date: 03/09/2019 Accession Number: [id number] / [id number] Procedure: CT - LUMBAR SPINE WO CPT Code: FULL RESULT: EXAM: CT LUMBAR SPINE WITHOUT CONTRAST EXAM DATE: 03/09/2019 03:15 PM. CLINICAL HISTORY: Fall with neck, thoracic, and lumbar pains. COMPARISONS: None. TECHNIQUE: Thin-section axial images were acquired of the lumbar spine from T12 to S1 without contrast. Post-processing: Coronal and sagittal reformats. Other: None. In accordance with CT protocol optimization, one or more of the following dose reduction techniques were utilized for this exam: automated exposure control, adjustment of mA and/or KV based on patient size, or use of iterative reconstructive technique. FINDINGS: Alignment: No scoliosis or spondylolisthesis. Bones: Five [id number] lumbar vertebral bodies are present. No acute displaced fractures or bone lesions. Age indeterminate superior end plate compression of L1 with 25% loss of body height. Musculature: Normal. No fatty atrophy. Other: The visualized retroperitoneum is unremarkable. IMPRESSION: No acute displaced fractures or bone lesions. No malalignment. Age indeterminate superior end plate compression of L1 with 25% loss of body height. No retropulsion. Stable fracture. RADIA
--- NOTE | 2019-03-09 15:55 | CT Report ---
Reason: fall with right hip and pelvic pain Procedure Date: 03/09/2019 Accession Number: [id number] / [id number] Procedure: CT - PELVIS WO CPT Code: FULL RESULT: EXAM: CT BONY PELVIS WITHOUT CONTRAST EXAM DATE: 03/09/2019 03:15 PM. CLINICAL HISTORY: Right hip and pelvic pain after fall. COMPARISON: None. TECHNIQUE: Thin-section axial images were acquired of the pelvis without contrast. Post-processing: Coronal and sagittal reformats. Other: None. In accordance with CT protocol optimization, one or more of the following dose reduction techniques were utilized for this exam: automated exposure control, adjustment of mA and/or KV based on patient size, or use of iterative reconstructive technique. FINDINGS: Bones: The bones are osteopenic which lowers the sensitivity in detecting fractures by CT. No acute fracture or bone lesions. Marginal osteophytes at the acetabulums and the right femoral head. Sclerosis and subcortical cysts at the right acetabulum and right femoral head. Subcortical cyst at the anterosuperior aspect of the right femoral head-neck junction. Visualized lower lumbar spine: Degenerative changes and mild levoconvex scoliosis. Sacroiliac Joints: No widening, erosions, or sclerosis. Symphysis Pubis: Mild to moderate degenerative changes. Right Hip: Severe right hip osteoarthritis. Small joint effusion. No dislocation. Left Hip: Mild to moderate left hip osteoarthritis. Musculature: Normal. No fatty atrophy. Pelvic Cavity: Severe sigmoid colon diverticulosis. Calcified plaque within the abdominal aorta and iliac arteries. Previous hysterectomy. No free fluid or lymphadenopathy. Small fat-containing bilateral inguinal hernias are present. Other: No lymphadenopathy. No free air or free fluid. The other visualized soft tissues are unremarkable. IMPRESSION: 1. Osteopenia which lowers the sensitivity in detecting fractures by CT. No definite acute fracture is seen. 2. Bilateral hip osteoarthritis, right more than left. 3. Degenerative changes and mild levoconvex scoliosis of the visualized lower lumbar spine. 4. Severe sigmoid colon diverticulosis. 5. Fat-containing bilateral inguinal hernias. RADIA
[2019-03-09 16:44] VITALS: BP 119/71
== END 2019-03-09 16:44 | disposition home or self-care (01) ==
LOC: EDUNIT# → ED 14:35
DX: S29.012A Strain of muscle and tendon of back wall of thorax, initial encounter (principal); S70.01XA Contusion of right hip, initial encounter; M54.2 Cervicalgia; M54.5 Low back pain; W01.0XXA Fall on same level from slipping, tripping and stumbling without subsequent striking against object, initial encounter; Y93.89 Activity, other specified; Y92.22 Religious institution as the place of occurrence of the external cause; M41.86 Other forms of scoliosis, lumbar region; M16.0 Bilateral primary osteoarthritis of hip; Z86.73 Personal history of transient ischemic attack (TIA), and cerebral infarction without residual deficits; Z79.82 Long term (current) use of aspirin
CPT/HCPCS: 70450; 72125; 72128; 72131; 72192; 96372; 99282; 99284; A9270

== ENCOUNTER 2019-03-28 16:44 | Outpatient (CLI) | payer MEDICARE | END 2019-03-28 16:45 | disposition critical access hospital (66) | LOC: EMS 16:44 | PROVIDERS: ATTEND Surgery | DX: R55 Syncope and collapse (principal) | CPT/HCPCS: A0425; A0429 ==

== ENCOUNTER 2019-03-28 17:25 | Emergency (ER) | payer MEDICARE ==
--- NOTE | 2019-03-28 17:44 | ED Physician Documentation ---
PD HPI SYNCOPE - Stated complaint Stated Complaint: SYNCOPE - Chief complaint Chief Complaint: Neuro - History obtained from History obtained from: Patient, EMS - History of Present Illness Witnessed: Witnessed (Fell twice today. She denies syncope but paramedics say she was syncopal. She has no injury. I guess she had a fall 20 days ago without serious injury. She feels like she might be dehydrated, reportedly that was a problem last time. She is supposed to use a walker, but was not today per her.) Review of Systems Ten Systems: 10 systems reviewed and negative Constitutional: denies: Fever, Chills Cardiac: denies: Chest pain / pressure, Palpitations Respiratory: denies: Dyspnea, Cough GI: reports: Constipation (2 days ago but having good BM since then.). 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 HEENT: Tonsil/Adenoidectomy - Present Medications Home Medications: Ambulatory Orders Medication Instructions Recorded Confirmed Aspirin [Aspir 81] 81 mg PO DAILY 02/07/14 12/27/15 Omeprazole [PriLOSEC] 20 mg PO DAILY 02/07/14 12/27/15 Melatonin 5 mg PO DAILY 12/27/15 12/27/15 Cannabidiol (Cbd) Extract 06/01/18 [Epidiolex] Cephalexin [Keflex] 500 mg PO Q6H #28 capsule 06/01/18 Venlafaxine HCl 9 mg PO 06/01/18 Cephalexin [Keflex] 500 mg PO Q6H #28 capsule 11/11/18 Doxycycline Hyclate 100 mg PO BID #14 capsule 03/28/19 - Allergies Allergies/Adverse Reactions: Allergies Allergy/AdvReac Type Severity Reaction Status Date / Time No Known Drug Allergies Allergy Verified 03/28/19 17:26 - Social History Does the pt smoke?: No Smoking Status: Never smoker Does the pt drink ETOH?: Yes Does the pt have substance abuse?: No - Immunizations Immunizations are current?: Yes - POLST Patient has POLST: No PD ED PE NORMAL - Vitals Vital signs reviewed: Yes - General General: Other (Alert and oriented to person and place but not time) - HEENT HEENT: PERRL, EOMI - Neck Neck: Supple, no meningeal sign, No bony TTP - Cardiac Cardiac: RRR, No murmur - Respiratory Respiratory: No respiratory distress, Clear bilaterally - Abdomen Abdomen: Normal bowel sounds, Soft, Non tender - Derm Derm: Normal color, Warm and dry - Neuro Neuro: No motor deficit, No sensory deficit, Normal speech Eye Opening: Spontaneous Motor: Obeys Commands Verbal: Confused (SLIGHT) GCS Score: 14 Results - Vitals Vitals: Vital Signs - 24 hr 03/28/19 03/28/19 03/28/19 17:23 17:26 19:19 Temperature 36.7 C Heart Rate 68 68 70 Respiratory 16 16 22 Rate Blood Pressure 139/59 H 134/65 H 149/78 H O2 Saturation 100 98 100 03/28/19 19:41 Temperature 36.7 C Heart Rate 70 Respiratory 20 Rate Blood Pressure 165/75 H O2 Saturation 98 Oxygen O2 Source Room air - EKG (time done) 1727 Rate: Rate (enter#) (69) Rhythm: NSR [place]: Normal Intervals: Normal NC QRS: Normal Ischemia: Normal ST segments Computer interpretation: Agree with computer - Labs Labs: Laboratory Tests 03/28/19 03/28/19 03/28/19 18:10 18:10 18:10 WBC 7.4 RBC 3.89 L Hgb 11.5 L Hct 37.9 MCV 97.4 MCH 29.6 MCHC 30.3 L RDW 13.9 Plt Count 165 MPV 10.1 Neut # (Auto) 6.0 Lymph # (Auto) 0.8 L [place] # (Auto) 0.5 Eos # (Auto) 0.1 Baso # (Auto) 0.0 Absolute Nucleated RBC 0.00 Nucleated RBC % 0.0 Sodium 143 Potassium 4.0 Chloride 107 Carbon Dioxide 22 Anion Gap 14.0 H BUN 24 H Creatinine 0.9 Estimated GFR (MDRD) 60 L Glucose 113 H Calcium 9.3 Total Bilirubin 0.3 AST 19 ALT 15 Alkaline Phosphatase 43 Troponin I High Sens 2.7 Total Protein 6.3 L Albumin 3.9 Globulin 2.4 Albumin/Globulin Ratio 1.6 Lipase 41 Urine Color Urine Clarity Urine pH Ur Specific [place] Urine Protein Urine Glucose (UA) Urine Ketones Urine Occult Blood Urine Nitrite Urine Bilirubin Urine Urobilinogen Ur Leukocyte Esterase Urine RBC Urine WBC Ur Squamous Epith Cells Amorphous Sediment Urine Bacteria Ur Microscopic Review Urine Culture Comments Urine Opiates Screen Ur Oxycodone Screen Urine Methadone Screen Ur Propoxyphene Screen Ur Barbiturates Screen Ur Tricyclics Screen Ur Phencyclidine Scrn Ur Amphetamine Screen U Methamphetamines Scrn U Benzodiazepines Scrn Urine Cocaine Screen U Cannabinoids Screen Ethyl Alcohol < 5.0 03/28/19 18:46 WBC RBC Hgb Hct MCV MCH MCHC RDW Plt Count MPV Neut # (Auto) Lymph # (Auto) [place] # (Auto) Eos # (Auto) Baso # (Auto) Absolute Nucleated RBC Nucleated RBC % Sodium Potassium Chloride Carbon Dioxide Anion Gap BUN Creatinine Estimated GFR (MDRD) Glucose Calcium Total Bilirubin AST ALT Alkaline Phosphatase Troponin I High Sens Total Protein Albumin Globulin Albumin/Globulin Ratio Lipase Urine Color YELLOW Urine Clarity CLOUDY Urine pH 6.0 Ur Specific [place] 1.025 Urine Protein NEGATIVE Urine Glucose (UA) NEGATIVE Urine Ketones NEGATIVE Urine Occult Blood TRACE-INTA Urine Nitrite NEGATIVE Urine Bilirubin NEGATIVE Urine Urobilinogen 0.2 (NORMAL) Ur Leukocyte Esterase TRACE H Urine RBC 0-5 Urine WBC 11-25 H Ur Squamous Epith Cells FEW Squamous Amorphous Sediment Few Urine Bacteria Few Ur Microscopic Review INDICATED Urine Culture Comments INDICATED Urine Opiates Screen NEGATIVE Ur Oxycodone Screen NEGATIVE Urine Methadone Screen NEGATIVE Ur Propoxyphene Screen NEGATIVE Ur Barbiturates Screen NEGATIVE Ur Tricyclics Screen NEGATIVE Ur Phencyclidine Scrn NEGATIVE Ur Amphetamine Screen NEGATIVE U Methamphetamines Scrn NEGATIVE U Benzodiazepines Scrn NEGATIVE Urine Cocaine Screen NEGATIVE U Cannabinoids Screen NEGATIVE Ethyl Alcohol PD MEDICAL DECISION MAKING - ED course ED course: Subsequently the arrived and further information was obtained from him. They went to a [email or web address] performance in [place], she kind of slumped down once while walking with him. No syncope that time but subsequent we had 2 short syncopal episodes without injury. Now seems back at her baseline which is fairly demented. I offered observation admission for syncope and UTI which the declined. Departure - Departure Disposition: 01 Home, Self Care Clinical Impression: Urinary tract infection Qualifiers: Urinary tract infection type: site unspecified Hematuria presence: without hematuria Qualified Code(s): N39.0 - Urinary tract infection, site not specified Syncope Qualifiers: Syncope type: unspecified Qualified Code(s): R55 - Syncope and collapse Condition: Good Record reviewed to determine appropriate education?: Yes Instructions: ED UTI Cystitis Female, ED Dizziness Syncope Fainting W Pre Prescriptions: Doxycycline Hyclate 100 mg PO BID #14 capsule Comments: Call your doctor to arrange a follow-up appointment, make the next available appointment. In the interim, return anytime if worse or if new symptoms develop.
[2019-03-28 18:14] LABS: BASOPHILS % (AUTO) 0.3 %; EOSINOPHILS # (AUTO) 0.1 10^3/uL (0.0-0.7); EOSINOPHILS % (AUTO) 1.4 %; HGB - HEMOGLOBIN 11.5 g/dL (12.0-16.0); LYMPHOCYTES # (AUTO) 0.8 10^3/uL (1.5-3.5); LYMPHOCYTES % (AUTO) 10.5 %; MEAN CORPUSCULAR HEMOGLOBIN 29.6 pg (27.0-31.0); MEAN CORPUSCULAR HGB CONC 30.3 g/dL (32.0-36.0); MEAN CORPUSCULAR VOLUME 97.4 fL (81.0-99.0); MEAN PLATELET VOLUME 10.1 fL (7.9-10.8); MONOCYTES # (AUTO) 0.5 10^3/uL (0.0-1.0); MONOCYTES % (AUTO) 6.5 %; PLT - PLATELET COUNT 165 10^3/uL (130-450); RED BLOOD COUNT 3.89 10^6/uL (4.20-5.40); RED CELL DISTRIBUTION WIDTH 13.9 % (12.0-15.0); WHITE BLOOD COUNT 7.4 x10^3/uL (4.8-10.8)
[2019-03-28 19:08] LABS: MUDS CUTOFF CONCENTRATIONS CUTOFF CONC BELOW:
[2019-03-28 19:13] LABS: BILIRUBIN,URINE NEGATIVE (NEGATIVE); GLUCOSE, URINE (UA) NEGATIVE (NEGATIVE); KETONES,URINE (UA) NEGATIVE (NEGATIVE); LEUKOCYTE ESTERASE, URINE TRACE (NEGATIVE); NITRITE,URINE NEGATIVE (NEGATIVE); OCCULT BLOOD,URINE TRACE-INTA (NEGATIVE); PROTEIN,URINE NEGATIVE (NEGATIVE); UROBILINOGEN,URINE 0.2 (NORMAL) E.U./dL (NORMAL)
[2019-03-28 19:19] LABS: CLARITY,URINE CLOUDY (CLEAR)
[2019-03-28 19:23] LABS: AMPHETAMINE SCREEN,URINE NEGATIVE (NEGATIVE); BENZODIAZEPINES SCREEN, URINE NEGATIVE (NEGATIVE); COCAINE SCREEN URINE NEGATIVE (NEGATIVE); METHAMPHETAMINES SCREEN, URINE NEGATIVE (NEGATIVE); OPIATE SCREEN, URINE NEGATIVE (NEGATIVE)
[2019-03-28 19:24] LABS: METHADONE SCREEN, URINE NEGATIVE (NEGATIVE); OXYCODONE SCREEN, URINE NEGATIVE (NEGATIVE); PROPOXYPHENE SCREEN, URINE NEGATIVE (NEGATIVE); TRICYCLIC ANTIDEPRESSANT,URINE NEGATIVE (NEGATIVE)
[2019-03-28 19:28] LABS: BACTERIA,URINE Few /HPF (None Seen); RBC,URINE 0-5 /HPF (0-5); SQUAMOUS EPITHELIAL CELL,UR FEW Squamous (<= Few)
[2019-03-28 19:29] LABS: AMORPHOUS SEDIMENT,UR Few /LPF
[2019-03-28 19:39] LABS: ALBUMIN 3.9 g/dL (3.2-5.5); ALBUMIN/GLOBULIN RATIO 1.6 (1.0-2.2); ALKALINE PHOSPHATASE 43 IU/L (42-121); ALT ALANINE AMINOTRANSFERASE 15 IU/L (10-60); AST ASPARTATE AMINOTRANSFERASE 19 IU/L (10-42); BILIRUBIN,TOTAL 0.3 mg/dL (0.2-1.0); BUN - BLOOD UREA NITROGEN 24 mg/dL (6-20); CALCIUM 9.3 mg/dL (8.5-10.3); CARBON DIOXIDE - CO2 22 mmol/L (21-32); CHLORIDE 107 mmol/L (101-111); CREATININE 0.9 mg/dL (0.4-1.0); GFR - MDRD 60 (>89); GLUCOSE 113 mg/dL (70-100); LIPASE 41 U/L (22-51); SODIUM 143 mmol/L (135-145); TOTAL PROTEIN 6.3 g/dL (6.7-8.2)
[2019-03-28] MEDS ORDERED: DOXYCYCLINE 100 MG TABLET PO STA (19:45)
[2019-03-28 19:57] VITALS: BP 165/75
== END 2019-03-28 19:58 | disposition home or self-care (01) ==
LOC: ED 17:25
DX: N39.0 Urinary tract infection, site not specified (principal); R55 Syncope and collapse; F03.90 Unspecified dementia, unspecified severity, without behavioral disturbance, psychotic disturbance, mood disturbance, and anxiety
CPT/HCPCS: 36415; 51701; 80053; 81001; 83690; 84484; 85025; 87077; 87086; 87181; 93005; 99283; 99284; A9270; 80306; 80320; 81003

== ENCOUNTER 2019-08-28 19:07 | Outpatient (CLI) | payer SELFPAY | END 2019-08-28 19:08 | disposition EMS.NT | LOC: EMS 19:07 | PROVIDERS: ATTEND Surgery | DX: R55 Syncope and collapse (principal) ==

== ENCOUNTER 2019-09-17 20:10 | Outpatient (CLI) | payer SELFPAY | END 2019-09-17 20:11 | disposition EMS.NT | LOC: EMS 20:10 | PROVIDERS: ATTEND Surgery | DX: R53.1 Weakness (principal) ==

== ENCOUNTER 2019-12-16 19:41 | Outpatient (CLI) | payer SELFPAY | END 2019-12-16 19:42 | disposition EMS.NT | LOC: EMS 19:41 | PROVIDERS: ATTEND Surgery | DX: R55 Syncope and collapse (principal) ==

== ENCOUNTER 2020-02-03 16:38 | Outpatient (CLI) | payer SELFPAY | END 2020-02-03 16:39 | disposition EMS.NT | LOC: EMS 16:38 | PROVIDERS: ATTEND Surgery | DX: R53.1 Weakness (principal) ==

== ENCOUNTER 2020-04-12 10:55 | Outpatient (CLI) | payer MEDICARE ==
--- NOTE | 2020-04-12 13:48 | XRAY Report ---
PROCEDURE: Wrist 4 View LT INDICATIONS: PAIN OF LEFT WRIST TECHNIQUE: 4 views of the wrist were acquired. COMPARISON: None FINDINGS: Bones: Diffuse osteopenia. Minimally impacted, nondisplaced fracture of the distal left radius. No de finite intra-articular extension. Overlying soft tissue edema. Moderate degenerative changes of the f irst carpometacarpal joint and triscaphe joint. No suspicious bony lesions. Scaphoid view: Scaphoid appears intact. Scapholunate interval is maintained. Soft tissues: No suspicious soft tissue calcifications. IMPRESSION: Minimally impacted distal left radial fracture without definite intra-articular extension. Degenerative changes of the left wrist. Diffuse osteopenia. Reviewed by: Alex Santos MD on 04/12/2020 12:46 PM [facility] Approved by: Alex Santos MD on 04/12/2020 12:46 PM [facility] Station ID: [id number]
== END 2020-04-12 10:56 | disposition home or self-care (01) ==
LOC: DI.S 10:55
PROVIDERS: ATTEND Nurse Practitioner Family
DX: S52.502A Unspecified fracture of the lower end of left radius, initial encounter for closed fracture (principal); M19.032 Primary osteoarthritis, left wrist; M85.832 Other specified disorders of bone density and structure, left forearm

== ENCOUNTER 2020-04-20 14:42 | Emergency (ER) | payer MEDICARE ==
[2020-04-20] MEDS ORDERED: oxyCODONE 5 MG TABLET PO STA (15:11)
--- NOTE | 2020-04-20 15:37 | CT Report ---
PROCEDURE: LUMBAR SPINE WO INDICATIONS: fall, back pain TECHNIQUE: Noncontrast 3 mm thick sections acquired from the T12 level to the sacrum. Sagittal and coronal refo rmats were constructed. For radiation dose reduction, the following was used: automated exposure co ntrol, adjustment of mA and/or kV according to patient size. COMPARISON: CT lumbar spine 03/22/2015 and 2018. FINDINGS: Image quality: Excellent. Bones: There is mild L1-L2 and L2 on L3 retrolisthesis. There is trace L3-L4 retrolisthesis. Chronic appearing L1 compression deformity is stable compared to prior exams. Large Schmorl's node in the scott perior endplate of the L1 vertebral body is stable compared to prior exams. No acute vertebral body c ompression fractures. No suspicious lytic or blastic bony lesions. Central spinal caliber is of nor mal overall caliber. No pars defects. Multilevel degenerative disc changes noted. Multilevel facet arthropathy. No significant central my l narrowing. Severe left L5-S1 neural foraminal narrowing with compression of the exiting left L5 ner ve root. Soft tissues: No retroperitoneal masses or hematomas. Visualized aorta is normal in caliber. Scatte red atherosclerotic calcifications are noted in the visualized abdominal and pelvic vasculature. Sma ll hiatal hernia noted. 3 mm nonobstructing renal stones noted in the lower pole of the right kidney. Punctate calcifications noted in the spleen and liver compatible with sequela prior granulomatous di sease. IMPRESSION: 1. Chronic L1 compression fracture. 2. No acute compression fracture. 3. Multilevel degenerative disease. 4. Multilevel facet arthropathy 5. Severe left L5-S1 neural foraminal narrowing with compression of the exiting left L5 nerve root. 6. No significant central canal narrowing. 7. No acute osseous lesion. If there is continued clinical concern for pathology, then MRI should be considered for further evaluation. Reviewed by: Jael Pretty MD, PhD on 04/20/2020 3:36 PM PST Approved by: Jael Pretty MD, PhD on 04/20/2020 3:36 PM PST Station ID: [id number]
--- NOTE | 2020-04-20 15:54 | ED Physician Documentation ---
History of Present Illness - Stated complaint Stated Complaint: GLF - Chief complaint Chief Complaint: Back Pain - History obtained from History obtained from: Patient, Family - History of Present Illness Timing: How many days ago (2) Pain level max: 5 Pain level now: 3 - Additonal information Additional information: Patient with a fall 2 days ago. States low back pain since that time. Worse with movement, better with rest. Family concerned about possible UTI. No numbness or tingling. Has chronic incontinence. 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 HEENT: Tonsil/Adenoidectomy - Present Medications Home Medications: Ambulatory Orders Medication Instructions Recorded Confirmed Aspirin [Aspir 81] 81 mg PO DAILY 02/07/14 12/27/15 Omeprazole [PriLOSEC] 20 mg PO DAILY 02/07/14 12/27/15 Melatonin 5 mg PO DAILY 12/27/15 12/27/15 Cannabidiol (Cbd) [Epidiolex] 06/01/18 Cephalexin [Keflex] 500 mg PO Q6H #28 capsule 06/01/18 Venlafaxine HCl 9 mg PO 06/01/18 Cephalexin [Keflex] 500 mg PO Q6H #28 capsule 11/11/18 Doxycycline Hyclate 100 mg PO BID #14 capsule 03/28/19 HYDROcod/ACETAM 5/325 [[place] 5/325] 1 ea PO Q6H PRN #14 tablet 04/20/20 Nitrofurantoin Monohyd/M-Cryst 100 mg PO BID #10 capsule 04/20/20 [Macrobid 100 mg Capsule] - Allergies Allergies/Adverse Reactions: Allergies Allergy/AdvReac Type Severity Reaction Status Date / Time No Known Drug Allergies Allergy Verified 04/20/20 14:52 - Social History Does the pt smoke?: No Smoking Status: Never smoker Does the pt drink ETOH?: Yes Does the pt have substance abuse?: No - Immunizations Immunizations are current?: Yes - POLST Patient has POLST: No PD ED PE NORMAL - Vitals Vital signs reviewed: Yes - General General: Alert and oriented X 3, No acute distress - HEENT HEENT: Moist mucous membranes - Neck Neck: Supple, no meningeal sign - Cardiac Cardiac: RRR - Respiratory Respiratory: No respiratory distress, Clear bilaterally - Back Back: Other (Mild tenderness to palpation low lumbar. No step-off or deformity.) - Derm Derm: Warm and dry - Extremities Extremities: Other (Normal bilateral lower extremity patellar and ankle jerk reflexes. Normal great toe extension bilaterally. no saddle anesthesia) - Neuro Neuro: Alert and oriented X 3, professional services manager 2-12 intact, No motor deficit, No sensory deficit, Normal speech Results - Vitals Vitals: Vital Signs - 24 hr 04/20/20 04/20/20 04/20/20 14:47 14:52 16:52 Temperature 36.7 C 36.7 C Heart Rate 70 70 70 Respiratory 16 16 15 Rate Blood Pressure 132/57 H 132/57 H 130/60 O2 Saturation 99 99 100 04/20/20 18:11 Temperature 36.2 C L Heart Rate 61 Respiratory 18 Rate Blood Pressure 140/69 H O2 Saturation 95 Oxygen O2 Source Room air - Labs Labs: Laboratory Tests 04/20/20 17:23 Urine Color YELLOW Urine Clarity HAZY Urine pH 6.0 Ur Specific Early 1.020 Urine Protein NEGATIVE Urine Glucose (UA) NEGATIVE Urine Ketones NEGATIVE Urine Occult Blood NEGATIVE Urine Nitrite NEGATIVE Urine Bilirubin NEGATIVE Urine Urobilinogen 0.2 (NORMAL) Ur Leukocyte Esterase SMALL H Urine RBC 0-5 Urine WBC 11-25 H Ur Squamous Epith Cells FEW Squamous Urine Bacteria Many H Ur Microscopic Review INDICATED Urine Culture Comments INDICATED - Rads (name of study) CT L-spine Radiology: Prelim report reviewed, EMP read contemporaneously, See rad report (No acute abnormality) PD MEDICAL DECISION MAKING - ED course Complexity details: reviewed results, re-evaluated patient, considered differential (No cauda equina, no spinal epidural abscess, no fracture, no aortic dissection or evidence of aneursym rupture), d/w patient, d/w family ED course: 84-year-old female status post a ground-level fall. No acute findings on CT scan. Will place on antibiotics for UTI. Ambulating well. Pain well controlled. Patient and family counseled regarding signs and symptoms for which I believe and urgent re-evaluation would be necessary. Patient with good understanding of and agreement to plan and is comfortable going home at this time This document was made in part using voice recognition software. While efforts are made to proofread this document, sound alike and grammatical errors may occur. Departure - Departure Disposition: Home, Self Care Clinical Impression: Back pain Qualifiers: Back pain location: low back pain Chronicity: acute Back pain laterality: bilateral Sciatica presence: without sciatica Qualified Code(s): M54.5 - Low back pain Fall Qualifiers: Encounter type: initial encounter Qualified Code(s): W19.XXXA - Unspecified fall, initial encounter UTI (urinary tract infection) Qualifiers: Urinary tract infection type: acute cystitis Hematuria presence: without hematuria Qualified Code(s): N30.00 - Acute cystitis without hematuria Condition: Good Instructions: ED Low Back Pain Injury, ED UTI Cystitis Female Follow-Up: Millie Frazier ARNP [Primary Care Provider] - Within 1 week Prescriptions: Nitrofurantoin Monohyd/M-Cryst [Macrobid 100 mg Capsule] 100 mg PO BID #10 capsule HYDROcod/ACETAM 5/325 [[place] 5/325] 1 ea PO Q6H PRN #14 tablet PRN Reason: Pain Comments: Take all antibiotics until gone. Return if you worsen. Follow-up with your doctor for further care. Do not drink alcohol or drive while on narcotic pain medicine. Note that many narcotic pain relievers also contain tylenol/acetaminophen. Please ensure that your total dose of acetaminophen from all sources does not exceed 3 grams (3000mg) per day. You may constipated on this medication, take a stool softener such as "Colace" twice a day while you are on it. Also recommend a jlat-trh-smsavsz laxative such as senna or MiraLAX any day that you do not have a bowel movement. If you received narcotic pain medication in the emergency department, do not drive or operate machinery for the next 24 hours. Discharge Date/Time: 04/20/20 18:51
[2020-04-20 17:33] LABS: BILIRUBIN,URINE NEGATIVE (NEGATIVE); GLUCOSE, URINE (UA) NEGATIVE (NEGATIVE); KETONES,URINE (UA) NEGATIVE (NEGATIVE); LEUKOCYTE ESTERASE, URINE SMALL (NEGATIVE); NITRITE,URINE NEGATIVE (NEGATIVE); OCCULT BLOOD,URINE NEGATIVE (NEGATIVE); PROTEIN,URINE NEGATIVE (NEGATIVE); UROBILINOGEN,URINE 0.2 (NORMAL) E.U./dL (NORMAL)
[2020-04-20 17:45] LABS: CLARITY,URINE HAZY (CLEAR)
[2020-04-20 17:52] LABS: BACTERIA,URINE Many /HPF (None Seen); RBC,URINE 0-5 /HPF (0-5); SQUAMOUS EPITHELIAL CELL,UR FEW Squamous (<= Few)
[2020-04-20] MEDS ORDERED: cephALEXin 250 MG CAPSULE PO STA (17:57)
[2020-04-20] MEDS ORDERED: NITROFURANTOIN MACRO 100 MG CAPSULE PO STA (18:02)
[2020-04-20 18:12] VITALS: BP 140/69
== END 2020-04-20 18:51 | disposition home or self-care (01) ==
LOC: ED 14:42
DX: M54.5 Low back pain (principal); W10.9XXA Fall (on) (from) unspecified stairs and steps, initial encounter; Z91.81 History of falling; N30.00 Acute cystitis without hematuria; Z79.82 Long term (current) use of aspirin; Z86.73 Personal history of transient ischemic attack (TIA), and cerebral infarction without residual deficits
CPT/HCPCS: 72131; 81001; 87086; 99284; A9270; 81003

== ENCOUNTER 2020-05-25 15:32 | Outpatient (CLI) | payer MEDICARE ==
--- NOTE | 2020-05-25 15:59 | XRAY Report ---
PROCEDURE: Wrist 3 View LT INDICATIONS: CLOSED FRACTURE OF LEFT WRIST TECHNIQUE: 3 views of the wrist were acquired. COMPARISON: None 04/12/2020 FINDINGS: Bones: No previously unidentified fractures or dislocations. No suspicious bony lesions. Scaphoid view: Not obtained and the scaphoid visualized appears normal except for distal degenerativ e change. Soft tissues: No suspicious soft tissue calcifications. IMPRESSION: Continued healing of a distal radius Colle's fracture, with mild dorsal angulation at the fracture pl ane. Reviewed by: Guy Malloy MD on 05/25/2020 3:58 PM PST Approved by: Guy Malloy MD on 05/25/2020 3:58 PM PST Station ID: [id number]
== END 2020-05-25 15:33 | disposition home or self-care (01) ==
LOC: DI.S 15:32
PROVIDERS: ATTEND Registered Nurse
DX: S52.532A Colles' fracture of left radius, initial encounter for closed fracture (principal)

== ENCOUNTER 2020-07-04 11:15 | Outpatient (CLI) | payer MEDICARE ==
--- NOTE | 2020-07-04 13:43 | CONSULTATION NOTE ---
Palliative Care Consultation - Referral Referring Provider: NORMA Gunn Time of Visit: 7800-2823 Referral setting: Home Referral Reason: Vascular Dementia/Advanced Care Planning - Information Sources Records reviewed: Previous records reviewed History/Review of Systems obtained from: Patient, Family (spouse/DPOA, Jerome) Exam limitations: Clinical condition (STM impairment) - History of Present Illness Brief History of Present Illness: This is an 84-year-old female who was seen and evaluated today within her home for initial palliative care consultation with her spouse/DPOAManuel presents due to frequent falls, progression of vascular dementia, history of CVA, and advanced care planning. The patient has a history of frequent falls that have been more pronounced in the last month. Her last fall resulted in her seeing her PCP yesterday and due to pain and potential fracture was initiated on as needed tramadol and calcitonin for 30 days. The has not yet picked this up from [employer] and plans to later today. Her falls have revolved around coming down stairs with balance and not making it. There are her 2 steps into a sunken living area. The patient ambulates with her Rollator. The patient has a history of chronic back pain. Typically it has occurred mid thoracic along the right side and will radiate up to her neck. She does have a history of an L1 compression fracture in the past as well as osteoporosis. In the past for her chronic pain there have been many regimens that have been tried including Arnica, CBD gel, non-CBD gel, IcyHot, Biofreeze with all of these being hit or miss in their effectiveness. They have also tried massage as the patient's spouse is a retired massage therapist but this too is hit or miss and presently pain is too acute. Denies any numbness or tingling down her extremities. Prior to this recent fall for which she saw her PCP for, the patient's spouse reports that her pain is usually around a 3-4/10 with some peak levels. They have attempted to control the pain with the above or a combination of tylenol and/or motrin. The patient sustained a CVA in 2004 with residual left-sided weakness. Since that time she has had gradual decline in her cognition and memory. The patient's spouse notes that in the last year her cognition has further worsened especially in her ability to recall names, and if the question is answered her short-term memory is extremely poor requiring the answer to be very repeated. She also has episodes where she confabulates periodically. Spouse also reports that in the past year the patient believed that family members were showing up at the house. No recent behavioral disturbances or hallucinations noted. She has a history of depression. She had been on sertraline in the past per the 's report. She transition to Effexor but this led to increased falls and this was subsequently stopped due to hypotension. The patient herself is seen sitting up in her recliner lift chair completing breakfast. No evidence of coughing or dysphagia during eating. Well groomed and no acute distress. Medical/Surgical History - Past Medical History Cardiovascular: reports: High cholesterol Respiratory: reports: None Neuro: Dementia (Vascular Dementia), CVA (Ischemic stroke 01/2005, id right cerebral with left sided weakness.) Neuro: reports: CVA GI: reports: GERD : reports: Incontinence (h/o of Botox injection 2013 without improvement), Other (CKD stage III) Psych: reports: Depression Musculoskeletal: reports: Osteoporosis (s/p 5 years of fosamax, h/o of L1 comrpession fracture), Chronic back pain, Other (closed fracture left wrist 2019) Derm: reports: Other (BCC right medial cheek 2012) MRSA Hx?: No - 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 Support System: The patient and her spouse have been for 33 years and have no children together. The patient has a daughter from a previous relationship who resides in [place] whom she is estranged from and does not have contact with. The patient has a degree in theater from [employer] in [place]. 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 The patient and her nurse spouse settled on [facility] after the patient reported that she loves the area. The patient has transitioned to the first floor for living arrangements as has her spouse for avoidance of stairs. They have private caregivers who are coming to assist 5 days/week for 4 hours/day. They also have someone who is coming to clean the home every other week. Family History - Family History Family History: Mother: , CVA/TIA, Father: , NE, Brother: , NE Medications/Allergies - Medications Home Medications: Ambulatory Orders Medication Instructions Recorded Confirmed Aspirin [Aspir 81] 81 mg PO DAILY 02/07/14 07/04/20 Omeprazole [PriLOSEC] 20 mg PO DAILY 02/07/14 07/04/20 Melatonin 5 mg PO DAILY 12/27/15 07/04/20 HYDROcod/ACETAM 5/325 [[place] 5/325] 1 ea PO Q6H PRN #14 tablet 04/20/20 Acetaminophen [Acetaminophen Extra 500 mg PO Q4H MDD NTE 3g total in 07/04/20 07/04/20 Strength] 24h Atorvastatin [Lipitor] 10 mg PO DAILY 07/04/20 07/04/20 Calcitonin [Fortical] 1 spray IN DAILY MDD x30 days 07/04/20 07/04/20 Nitrofurantoin Macrocrystal 50 mg PO DAILY 07/04/20 07/04/20 [Macrodantin] Vitamin D3 1,000 unit PO DAILY 07/04/20 traMADol [Ultram] 1 tab PO Q6H PRN 07/04/20 07/04/20 - Allergies Allergies/Adverse Reactions: Allergies Allergy/AdvReac Type Severity Reaction Status Date / Time venlafaxine AdvReac Dizziness Verified 07/04/20 17:42 Review of Systems - Constitutional Constitutional: reports: Fatigue (sleeping more during the day), Weight gain (weight 122lb). denies: Fever, Poor appetite - Eyes Eyes: reports: Corrective lenses. denies: Irritation - Ears, Nose & Throat Ears, Nose & Throat: reports: Hearing loss. denies: Hearing aids (does not wear her hearing aids as multiple pairs have been lost) - Cardiovascular Cardiovascular: denies: Chest pain - Respiratory Respiratory: denies: Cough, Wheezing - Gastrointestinal Gastrointestinal: reports: Vomiting (history of spontaneous vomiting after CVA, none recently), Good appetite. denies: Abdominal pain, Constipation (routine bowel movements) - Genitourinary Genitourinary: reports: Incontinence. denies: Dysuria - Musculoskeletal Musculoskeletal: reports: Back pain, Stiffness, Assistive devices, Other (h/o frequent falls) - Integumentary Integumentary: reports: Dryness - Neurological Neurological: reports: General weakness, Memory problems. denies: Headache, Dizziness - Psychiatric Psychiatric: reports: Depression (history of depression with no present symptoms) - Endocrine Endocrine: denies: Diabetes type 2 - All Other Systems All Other Systems: reports: Reviewed and negative (Patient is a poor historian due to vascular dementia and review of systems is supplemented by patient's spouse/DPKristopher SALAS) Physical Exam - Vital Signs Temperature: 36.6 C Pulse Rate: 88 O2 Saturation: 97 (on RA at rest) Blood Pressure: 110/63 (left wrist cuff) - Physical Exam General Appearance: positive: No acute distress, Alert, Other (b/l temporal wasting, well groomed, frail) Eyes Bilateral: positive: Normal inspection ENT: positive: No signs of dehydration Neck: positive: Trachea midline, Other (thin) Cardiovascular: positive: Regular rate & rhythm. 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 negative: Disoriented to person, Disoriented to place, Disoriented to time, Depressed mood/affect Palliative Care Pain: Comment (recent acute pain after fall with spouse having to picking tech new prescriptions for pain management) Nausea: None Anorexia: None Dyspnea: None Depression: None Anxiety: None Constipation: No Performance Status: Patient is ambulatory with her Rollator. Has a history of frequent falls. Unable to do museum docent such as cleaning and cooking. No dysphagia and requires no assistance with feeding. Urinary incontinence. - Palliative Care Discussion: Patient has had a gradual cognitive decline since she sustained an ischemic CVA in 2004. Her spouse is noted increased confusion with her short-term memory over the last year. 2 had been in looking towards caregiving options for the future and had settled on assisted living or memory care at [facility] early in 2019 and then coronavirus hits and this has delayed these plans. The patient's spouse has had some health concerns this last year that resulted in a hospitalization and overall a crisis that the patient secondary DPOA stepped up and assisted with getting caregivers within the home and this is worked out to both the patient and the spouse's benefit. The patient's spouse does feel that eventually facility placement will be at the course but given coronavirus and limitations they wish to hold out as long as possible within their home with the caregiving support from the community. The patient herself expresses some concern about stephanie COVID-19 and both she and her spouse are scheduled to be vaccinated later next month. Impression and Recommendations - Palliative Care Impression: This is a farnaz 84-year-old female with a history of vascular dementia, CVA with residual effects, chronic back pain and history of frequent falls who has had a steady cognitive decline she sustained her CVA. The patient sustained a recent acute fall for which she was seen by her PCP yesterday and has not yet started her calcitonin nasal spray and tramadol for pain.Patient does not display any signs and symptoms of pressure and at the present time. Palliative care will continue to provide support for teasing out goals of care, care coordination, symptom management and anticipatory guidance. Recommendations/Counseling Done: 1. CVA with residual left-sided weakness. History of frequent falls. E ncouraged to call for assistance. Introduced obtainment of hospital bed for preparation in the future that may be obtained from [employer] for rent to own with the patient's spouse/DPOA. Encourage use of Rollator within the home. Status post home health physical therapy. Spouse is to set up bed cane for the patient's use. 2. Bilateral Shoulder pain. Questionable underlying osteoarthritis given DJD changes noted to the patient's hands versus referred pain from the thoracic spine versus kyphosis and patient's posturing. Introduced idea of use of Voltaren gel for the joints in the future. Reviewed with the patient's spouse that this is a topical NSAID and very little is absorbed systemically but if implemented even on an as-needed basis would wish to avoid oral NSAID use to prevent the risk of complications such as GI bleeding with understanding verbalized. We will continue to monitor. 3. Low back pain, acute on chronic. Recently seen on 07/03/2020 by her PCP and initiated on pain regimen. Unclear if this is effective as it has not been initiated at the time of this visit. Reviewed with the patient spouse that if introducing acetaminophen that the dosage is not to exceed 3 g daily in 24 hours from all sources. The patient's spouse has reluctance regarding opioid therapy due to his own prior experiences with it. Introduced with initiation of tramadol which should have routine bowel movements and within the home the patient has access to docusate and reviewed this is used for softening as well as senna which is a stimulant and how to titrate with the goal bowel movements every 2 days. 4.Vascular dementia with history of CVA contributing. Chronic. Progressive. Fall precautions. No behavioral concerns reported at this time. On no disease modifying agents. Given the patient's advanced age and chronic comorbidities a gradual decline is expected. 5. Advanced care planning. At next visit we will review POLST if within the home as well as obtainment of healthcare power of assistant district attorney paperwork from patient's spouse. Teased out today regarding long-term goals at the present time is to remain within their home setting for as long as possible with caregiving support from private caregivers due to coronavirus. When coronavirus settles and the patient and her spouse have been Vaccinated then the spouse will once again look at the patient's needs and if this can be met at home or transitioning to a facility setting for management. We will continue to explore goals of care moving forward As report is built. Time Spent: Total time spent 75 minutes with greater than 50% of this spent in counseling and coordination of care With the patient and spouse/DPOA; review of palliative care philosophy; review pathophysiology of vascular dementia; examination of patient, review of pain and symptom management and anticipatory guidance. Disclaimer: The chart note was formulated using voice recognition technology and unfortunately sound alike errors may occur.
== END 2020-07-04 11:16 | disposition home or self-care (01) ==
LOC: PC 11:15
PROVIDERS: ATTEND Nurse Practitioner Family
DX: Z51.5 Encounter for palliative care (principal); I69.354 Hemiplegia and hemiparesis following cerebral infarction affecting left non-dominant side; Z91.81 History of falling; M25.512 Pain in left shoulder; M25.511 Pain in right shoulder; M54.5 Low back pain; G89.29 Other chronic pain; F01.50 Vascular dementia, unspecified severity, without behavioral disturbance, psychotic disturbance, mood disturbance, and anxiety; Z87.891 Personal history of nicotine dependence
CPT/HCPCS: 99345

== ENCOUNTER 2020-07-27 12:15 | Outpatient (CLI) | payer MEDICARE ==
--- NOTE | 2020-07-27 17:44 | CONSULTATION NOTE ---
Palliative Care Follow Up - Referral Referring Provider: NORMA Whitney Time of Visit: 2404-0705 Referral setting: Home Referral Reason: Vascular Dementia/Advanced Care Planning/Back Pain - Information Sources Records reviewed: Previous records reviewed History/Review of Systems obtained from: Patient, Family (spouse, Jerome) Exam limitations: Clinical condition (Advanced dementia) - History of Present Illness Update Brief HPI Update: This is an 84-year-old female who was seen in follow-up today within her home due to vascular dementia, back pain, and advanced care planning. 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 She was initiated on calcitonin nasal spray and tramadol. The patient spouse reports that they use the calcitonin nasal spray 9 fairly consistently. They use acetaminophen a few times in the past few weeks. They were no longer giving the patient tramadol for the last 2 to 3 days and the patient is denying any reports of back pain. The patient herself today reports that she is without any pain to her back. Including no pain upon palpation. The patient spouse reports that she is back to her baseline. She continues to use her walker with ambulation.Reports of falls in recent weeks. She continues to have worsening cognitive decline and the patient's spouse recognizes that this will continue to progress. The plan remains to continue to keep the patient at home for as long as possible given Covid19 and then once things clear up look at transitioning to assisted living or memory care assistance. Her appetite is sound and she "basically eats all day long." The spouse reports that he has noted that the patient will have increased falls if she has an underlying urinary tract infection or due to a new medication. She has a lifelong history of frequent UTIs. She has been on prophylactic antibiotic therapy through the years on different agents. She presently is on Macroid and has been on this for approximately 1 year. The patient spouse cannot appreciate if this has reduced her urinary tract frequency but believes that is so. The culprit tends to be the ability for adequate pericare despite attempts by the patient's spouse and private caregivers. It has been several months since the patient developed a urinary tract infection. The patient is seen in the common area sitting in her work [employer] lift chair working on a crossword puzzle. No evidence of acute distress. 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 Social History - Living Situation Living arrangement: At home Living Situation: With spouse/s.o. Support System: The patient and her spouse, Kristopher have been for 33 years and have no children together. The patient has a daughter from a previous relationship who resides in [place] whom she is estranged from and does not have contact with. 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 She and her spouse have transition to the first floor of their home for avoidance of stairs and fall prevention. Private caregivers come into the home to assist 5 days/week for 4 hours/day. They also have someone to come into the home for cleaning every other week. Medications/Allergies - Medications Home Medications: Ambulatory Orders Medication Instructions Recorded Confirmed Aspirin [Aspir 81] 81 mg PO DAILY 02/07/14 07/04/20 Omeprazole [PriLOSEC] 20 mg PO DAILY 02/07/14 07/04/20 Melatonin 5 mg PO DAILY PRN 12/27/15 07/04/20 Acetaminophen [Acetaminophen Extra 500 mg PO Q4H MDD NTE 3g total in 07/04/20 07/04/20 Strength] 24h Atorvastatin [Lipitor] 10 mg PO DAILY 07/04/20 07/04/20 Nitrofurantoin Macrocrystal 50 mg PO DAILY 07/04/20 07/04/20 [Macrodantin] - Allergies Allergies/Adverse Reactions: Allergies Allergy/AdvReac Type Severity Reaction Status Date / Time venlafaxine AdvReac Dizziness Verified 07/04/20 17:42 Review of Systems - Constitutional Constitutional: reports: Fatigue (sleeping more during the day), Weight stable (no reported weight loss). denies: Fever, Poor appetite - Eyes Eyes: reports: Corrective lenses - Ears, Nose & Throat Ears, Nose & Throat: reports: Hearing loss. denies: Hearing aids (does not wear her hearing aids), Dentures - Cardiovascular Cardiovascular: denies: Chest pain, Exertional dyspnea - Respiratory Respiratory: denies: Cough, SOB at rest - Gastrointestinal Gastrointestinal: reports: Vomiting (history of spontaneous vomiting after CVA, none recently), Good appetite (grazes all day). denies: Constipation (routine bowel movements) - Genitourinary Genitourinary: reports: Incontinence. denies: Dysuria - Musculoskeletal Musculoskeletal: reports: Stiffness, Assistive devices (uses rollator for ambulation), Other (h/o frequent falls). denies: Back pain, Joint pain - Integumentary Integumentary: reports: Dryness - Neurological Neurological: reports: General weakness, Memory problems. denies: Headache, Di zziness - Psychiatric Psychiatric: reports: Depression (history of depression with no present symptoms) - Endocrine Endocrine: denies: Hypothyroidism - Hematologic/Lymphatic Hematologic/Lymph: reports: Recurrent infections (UTIs on daily macrobid for suppression) - All Other Systems All Other Systems: reports: Reviewed and negative (Patient is a poor historian due to vascular dementia and review of systems is supplemented by patient's spouse/Jerome KAYE) Physical Exam - Vital Signs Temperature: 36.7 C Pulse Rate: 79 O2 Saturation: 97 (on RA) Blood Pressure: 136/66 - Physical Exam General Appearance: positive: No acute distress, Alert, Other (b/l temporal w asting, well groomed, frail) Eyes Bilateral: positive: Normal inspection, PERRL ENT: positive: No signs of dehydration, Other (no dentures) Neck: positive: Trachea midline Cardiovascular: positive: Regular rate & rhythm, No murmur Respiratory: positive: No respiratory distress, Breath sounds nml. negative: Rales Abdomen: positive: Non-tender, Soft, Nml bowel sounds. 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 Has a history of frequent falls but none recently. No dysphagia and able to self feed. Urinary incontinence. Needs cueing and assistance with pericare. No weight loss reported. - Palliative Care Discussion: The patient continues to have gradual cognitive decline since she sustained an ischemic CVA in 2004. Her short-term memory continues to progress and the spouse recognizes that this is a continued progression. He has concerns regarding Covid19 and therefore is delaying any movement to an assisted living or memory care facility concerns with Covid19 tied down. In the interim he is noted and dedicated to continue to care for the patient within their home with the support of caregiving sources. The patient has a history of frequent urinary tract infections. The spouse reports none in recent months. She continues on Macrobid daily For suppressive therapy. Typically the patient will have increased falls if she has an underlying urinary tract infection. Introduced to the patient's spouse today that given her history of frequent urinary tract infections there may be a point in time that oral antibiotics may not be available for effective management and would require IV antibiotic therapy. He recognizes this but would wish to weight benfit vs burden regarding IV antibiotic therapy in the future. Impression and Recommendations - Palliative Care Impression: This is a farnaz 84-year-old female with a history of vascular dementia, CVA with residual effects, history of frequent falls and urinary tract infections who has had a steady cognitive decline who was recently plateaued. She is no longer reporting complaints of back pain. Palliative care will continue to provide support regarding goals of care, care coordination, symptom management and anticipatory guidance. Recommendations/Counseling Done: 1. Low back pain, chronic. Seen by her PCP initially on 07/03/2020 and initiated on a pain regimen for potential compression fracture. Completed tramadol and calcitonin and no longer reporting any reports of back pain on assessment. Spouse/DPOA prefers avoidance of "therapies due to prior experiences. Continue to monitor. 2. History of frequent urinary tract infections. Presently on Macrobid 50 mg daily. No recent urinary tract infections but spouse reports when there are increased frequent falls typically indicative of the patient having an underlying urinary tract infection. Spouse has multiple specimen cups within the home for attainment of a urinary specimen. Upon review of microbiology report the patient frequently has grown E. coli and urinary culture. Consider introduction of d-mannose for additional prevention and support. Introduced to patient's spouse/DPOA today regarding potential for antibiotic resistance given the patient's long-term history of frequent urinary tract infections and chronic suppressive therapy and there may be a time that oral therapy is not an option and she would require IV antibiotic therapy. Patient spouse verbalizes understanding but at the present time would wish to weigh benefits versus burdens regarding treatment options as the situation unfolds. Continue to monitor. 3. Vascular dementia with history of CVA contributing. Chronic. Progressive. Fall precautions. No behavioral concerns reported at this time. On no disease modifying agents. Given the patient's advanced age and chronic comorbidities a gradual decline is expected. 4. Advanced care planning. Patient has POLST in home as DN AR with selective treatment. Patient spouse desires for the patient to remain in the home for as long as possible with caregiving support from private caregivers. Supportive listening provided. Continue to support assist regarding long-term care goals and expectations. F/u September 2020 or patient spouse to contact if any changes in condition in the interim or with concerns. Total time spent 35 minutes with greater than 50% of this spent in counseling and coordination of care Patient and spouse; risk of frequent urinary tract infections leading to multiple drug-resistant organisms reviewed; symptom management; supportive listening; and anticipatory guidance, review of pain and symptom management and anticipatory guidance. Disclaimer: The chart note was formulated using voice recognition technology and unfortunately sound alike errors may occur.
== END 2020-07-27 12:16 | disposition home or self-care (01) ==
LOC: PC 12:15
PROVIDERS: ATTEND Nurse Practitioner Family
DX: Z51.5 Encounter for palliative care (principal); Z87.440 Personal history of urinary (tract) infections; F01.50 Vascular dementia, unspecified severity, without behavioral disturbance, psychotic disturbance, mood disturbance, and anxiety; I69.354 Hemiplegia and hemiparesis following cerebral infarction affecting left non-dominant side; I69.319 Unspecified symptoms and signs involving cognitive functions following cerebral infarction; N18.30 Chronic kidney disease, stage 3 unspecified; Z91.81 History of falling; Z66 Do not resuscitate
CPT/HCPCS: 99348

== ENCOUNTER 2020-09-27 13:00 | Outpatient (CLI) | payer MEDICARE ==
--- NOTE | 2020-09-27 17:02 | CONSULTATION NOTE ---
Palliative Care Follow Up - Referral Referring Provider: NORMA Whitney Time of Visit: 9093-8631 Referral setting: Home Referral Reason: Vascular Dementia/Back Pain - Information Sources Records reviewed: Previous records reviewed History/Review of Systems obtained from: Patient, Family (spouse, Jerome) Exam limitations: Clinical condition (Advanced Dementia) - History of Present Illness Update Brief HPI Update: This is a 84-year-old female who was seen in follow-up today within her home due to vascular dementia, back pain and advance care planning. The patient's spouse reports that he has noted progression of her underlying dementia. He notes that in recent weeks she has begun sundowning in the afternoon. Her to her days revolve around getting up early watching TV or reading and after being up for a few hours with then go back to rest. She naps frequently throughout the day. She has started to nap later in the afternoon and when she wakes up this causes her to be confused regarding the time of day. When she is experiencing sundowning behaviors she believes that she is somewhere else and desires to go home which she perceives as her grandmother's house. She is easily redirectable per her spouse's report and there is no evidence of agitation and she easily accepts the response from her spouse. The patient's spouse has caregiving assistance 5 days/week. However, he is experiencing increased caregiver burden and is looking towards moving the patient to a memory care unit and most pacifically has been looking at [facility]. He was looking to transfer the patient some months ago however, Covid19 came onto the picture which prevented him from making that transfer sooner. Both the patient and her spouse have had their Covid vaccines. There is been no change in the patient's overall appetite and she grazes frequently throughout the day. She does report to some back pain and will have discomfort when she was sitting up for extended periods of time. She provide about find she has relief when she lays back down in her hospital bed. She will intermittently ask for acetaminophen from her spouse with positive effect. The patient is seen sitting up in her hospital bed well groomed and completing lunch. No evidence of acute distress stress. Social History - Living Situation Living arrangement: At home Living Situation: With spouse/s.o. Support System: The patient and her spouse, Kristopher have been for 33 years and have no children together. The patient has a daughter from the previous of relationship he resides in [place] who she has been estranged from. 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 She has plethora of art books in her home and is hoping to donate more of those to local artists for inspiration. The patient resides on the first floor of her home for avoidance of stairs and fall prevention. Private caregivers come into the home to assist 5 days/week for 4 hours/day. They also have assistance with cleaning the home every other week. The patient's spouse is looking for transfer positioning the patient to a memory care unit for more caregiving and medical oversight. Medications/Allergies - Medications Home Medications: Ambulatory Orders Medication Instructions Recorded Confirmed Aspirin [Aspir 81] 81 mg PO DAILY 02/07/14 07/04/20 Omeprazole [PriLOSEC] 20 mg PO DAILY 02/07/14 07/04/20 Melatonin 5 mg PO DAILY PRN 12/27/15 07/04/20 Acetaminophen [Acetaminophen Extra 500 mg PO Q4H MDD NTE 3g total in 07/04/20 07/04/20 Strength] 24h Atorvastatin [Lipitor] 10 mg PO DAILY 07/04/20 07/04/20 Nitrofurantoin Macrocrystal 50 mg PO DAILY 07/04/20 07/04/20 [Macrodantin] Acetaminophen [Acetaminophen Extra 500 mg PO DAILY 09/27/20 09/27/20 Strength] Docusate Sodium 100Mg Capsule 100 mg PO DAILY PRN 09/27/20 09/27/20 [Colace 100Mg Capsule] - Allergies Allergies/Adverse Reactions: Allergies Allergy/AdvReac Type Severity Reaction Status Date / Time venlafaxine AdvReac Dizziness Verified 07/04/20 17:42 Review of Systems - Constitutional Constitutional: reports: Fatigue (taking more naps during the day), Weight stable (no reported weight loss and clothes are fitting well). denies: Fever, Poor appetite - Eyes Eyes: reports: Corrective lenses - Ears, Nose & Throat Ears, Nose & Throat: reports: Hearing loss. denies: Hearing aids (does not wear her hearing aids) - Cardiovascular Cardiovascular: denies: Chest pain - Respiratory Respiratory: denies: Cough - Gastrointestinal Gastrointestinal: reports: Vomiting (history of spontaneous vomiting after CVA, none recently), Good appetite (grazes all day). denies: Constipation (reports bowel movement every other day with intermittent firmness), Other (Fecal incontience) - Genitourinary Genitourinary: reports: Incontinence. denies: Dysuria, Hematuria - Musculoskeletal Musculoskeletal: reports: Back pain (see HPI), Stiffness, Assistive devices (uses rollator for ambulation), Other (h/o frequent falls,none recently). denies: Joint pain - Integumentary Integumentary: reports: Dryness - Neurological Neurological: reports: General weakness, Memory problems. denies: Headache, Dizziness - Psychiatric Psychiatric: reports: Depression (history of depression) - Endocrine Endocrine: denies: Hypothyroidism - Hematologic/Lymphatic Hematologic/Lymph: reports: Recurrent infections (UTIs on daily macrobid for suppression) - All Other Systems All Other Systems: reports: Reviewed and negative (Patient is a poor historian due to vascular dementia and review of systems is supplemented by patient's spouse/Jerome KAYE) Physical Exam - Vital Signs Temperature: 36.8 C Pulse Rate: 61 O2 Saturation: 98 (on RA) Blood Pressure: 112/58 (left arm) - Physical Exam General Appearance: positive: No acute distress, Alert, Other (b/l temporal wasting, well groomed, frail) Eyes Bilateral: positive: Normal inspection ENT: positive: No signs of dehydration Neck: positive: Trachea midline Cardiovascular: positive: Regular rate & rhythm Respiratory: positive: No respiratory distress, Breath sounds nml, Rales (LLL). negative: Wheezes Abdomen: positive: Non-tender, Soft, Nml bowel sounds. 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 See HPI for additional details.) Depression: Mild (1-3) Sleep: Sleeps well Constipation: No Performance Status: Patient is ambulatory with her Rollator. Has a history of frequent falls but none recently. Able to self feed. No dysphagia. Urinary incontinence present. No fecal incontinence. Needs cueing and assistance with pericare. No weight loss reported. - Palliative Care Discussion: The patient has had further progression of her underlying vascular dementia with evidence of sundowning reported by her spouse that has been persistent. With her sundowning behavior she has been easily redirectable. Did discuss with the patient's spouse the use of low-dose quetiapine as a potential tool in the future if there is underlying agitation or discomfort With the purpose, dose and black box warnings associated with quetiapine reviewed. At this time, the patient does not require this medication as a tool she is easily redirectable. The patient's spouse has been a caregiver for approximately 16 years and this is taken a toll on him physically within regards to his own health. It has been a difficult decision, but he is going to be making a transition for the patient to relocate to a memory care unit and is looking at [facility] memory care. Patient's spouse is aware that palliative care can continue to follow at [facility] if he so desires. Supportive listening provided and normalized the patient's spouse's feelings regarding this next big transition and change. Impression and Recommendations - Palliative Care Impression: This is a farnaz 84-year-old female with a history of vascular dementia with recent sundowning, CVA with residual effects, history of frequent falls and urinary tract infections who has had a steady, functional cognitive decline. Is reporting increased back pain when she is sitting up for long periods of time and would benefit from introduction of routine acetaminophen. Palliative care will continue to provide support regarding goals of care, care coordination, pain and symptom management and anticipatory guidance. Recommendations/Counseling Done: 1. Low back pain, chronic. Initiate routine acetaminophen 500 mg daily around lunchtime as the patient is more symptomatic in the afternoons to optimize her ability to stay out of bed. May continue as needed acetaminophen not to exceed 3 g total daily from all sources. Patient's spouse/DPOA prefers to avoid opioid therapies due to past experiences. Continue to monitor. 2. Sundowning behavior. Occurring in the afternoons. No evidence of agitation reported by the patient's spouse. Introduced the use of quetiapine as a potential tool in the future if needed. Presently, the patient is easily redirectable. Please see palliative care discussion for further details. 3. Vascular dementia with history of CVA contributing. Chronic. Progressive. Fall precautions. New noted sending mounting behaviors. No disease modifying agents. Given the patient's advanced age and chronic comorbidities a gradual decline is expected. 4. Caregiver burden. The patient's spouse/DPOA has been the patient's primary caregiver for approximately 16 years and this is played a toll on his own physical wellbeing. The patient's spouse is looking to have the patient transition to memory care for further oversight and caregiving outside of the home. Patient spouse recognizes the trajectory of dementia and the patient's functional decline. However, he acknowledges the emotionally difficult decision that he has had to make and is preparing himself to introduce this transition to the patient specifically. Offered supportive listening today. 5. Advanced care planning. Patient has POLST as DN AR with selective treatment. Goal to transition to memory care for further assistance in the relation to progression of the patient's symptoms related to her dementia. Introduced to the patient's spouse that palliative care is available to follow the patient as she transitions to her new home environment if he would find that beneficial. Discussed that when transitioning to a new home environment that it may take 1 to 1-1/2 months to readjust and provided supportive listening to the patient's spouse. Total time spent 50 with greater than 50% of time spent in counseling and coordination of care with patient and spouse/DPOA Jerome; review of progression of dementia and management of symptoms; examination of the patient; review of pain and symptom management and anticipatory guidance. Disclaimer: The chart note was formulated using voice recognition technology and unfortunately sound alike errors may occur.
== END 2020-09-27 13:01 | disposition home or self-care (01) ==
LOC: PC 13:00
PROVIDERS: ATTEND Nurse Practitioner Family
DX: Z51.5 Encounter for palliative care (principal); M54.5 Low back pain; G89.29 Other chronic pain; F05 Delirium due to known physiological condition; F01.50 Vascular dementia, unspecified severity, without behavioral disturbance, psychotic disturbance, mood disturbance, and anxiety; I69.398 Other sequelae of cerebral infarction; Z66 Do not resuscitate
CPT/HCPCS: 99349

== ENCOUNTER 2020-10-28 08:11 | Outpatient (CLI) | payer MEDICARE | END 2020-10-28 08:12 | disposition critical access hospital (66) | LOC: EMS 08:11 | DX: M53.3 Sacrococcygeal disorders, not elsewhere classified (principal) | CPT/HCPCS: A0425; A0429 ==

== ENCOUNTER 2020-10-28 08:26 | Emergency (ER) | payer MEDICARE ==
[2020-10-28] MEDS ORDERED: ACETAMINOPHEN 325 MG TABLET PO STA (08:52)
--- NOTE | 2020-10-28 09:01 | ED Physician Documentation ---
History of Present Illness - Stated complaint Stated Complaint: GLF - Chief complaint Chief Complaint: Trauma Ch/Bk - History obtained from History obtained from: Patient - Additonal information Additional information: 84-year-old woman with history of dementia presents from [facility] post ground-level fall after falling off of the edge of bed this morning while trying to put on her slippers. She did not hit her head but did hit her bottom and is now complaining of left lower rib pain, midline thoracic and lumbar back pain, and left hip pain. She is normally ambulatory with a cane per her report. No other complaints at this time. mentating at baseline per ems. Review of Systems Unable to obtain: Dementia Musculoskeletal: reports: Back pain, Joint pain, Other (rib pain) PD PAST MEDICAL HISTORY - Past Medical History Cardiovascular: High cholesterol Respiratory: None Neuro: Dementia (Vascular Dementia), CVA (Ischemic stroke 01/2005, id right cerebral with left sided weakness.) GI: GERD : Incontinence (h/o of Botox injection 2013 without improvement), Other (CKD stage III) Psych: Depression Musculoskeletal: Osteoporosis (s/p 5 years of fosamax, h/o of L1 comrpession fracture), Chronic back pain, Other (closed fracture left wrist 2019) Derm: Other (BCC right medial cheek 2012) - Past Surgical History 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, 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 HEENT: Tonsil/Adenoidectomy Derm: Other (Moh's surgery 2012) - Present Medications Home Medications: Ambulatory Orders Medication Instructions Recorded Confirmed Aspirin [Aspir 81] 81 mg PO DAILY 02/07/14 10/28/20 Omeprazole [PriLOSEC] 20 mg PO DAILY 02/07/14 10/28/20 Melatonin 5 mg PO DAILY PRN 12/27/15 07/04/20 Acetaminophen [Acetaminophen Extra 500 mg PO Q4H MDD NTE 3g total in 07/04/20 10/28/20 Strength] 24h Atorvastatin [Lipitor] 10 mg PO DAILY 07/04/20 10/28/20 Nitrofurantoin Macrocrystal 50 mg PO DAILY 07/04/20 10/28/20 [Macrodantin] Docusate Sodium 100Mg Capsule 100 mg PO DAILY PRN 09/27/20 10/28/20 [Colace 100Mg Capsule] - Allergies Allergies/Adverse Reactions: Allergies Allergy/AdvReac Type Severity Reaction Status Date / Time venlafaxine AdvReac Dizziness Verified 10/28/20 08:37 - Social History Does the pt smoke?: No Smoking Status: Never smoker Does the pt drink ETOH?: Yes Does the pt have substance abuse?: No - Immunizations Immunizations are current?: Yes - POLST Patient has POLST: Yes PD ED PE NORMAL - Vitals Vital signs reviewed: Yes - General General: Other - HEENT HEENT: Atraumatic, PERRL, EOMI - Neck Neck: No bony TTP - Cardiac Cardiac: RRR, Other (Left lower lateral rib rotoformer backtender to palpation) - Respiratory Respiratory: No respiratory distress, Clear bilaterally - Abdomen Abdomen: Non tender, Non distended, Other (Left hemipelvis tender to palpation.) - Back Back: Other (Midline thoracic and lumbar Discomfort with palpation) - Derm Derm: Normal color, Warm and dry - Extremities Extremities: No deformity, No tenderness to palpate, Normal ROM s pain, Other (2+ bilateral DP and PT pulses. Normal sensation and strength) - Neuro Neuro: No motor deficit, No sensory deficit - Psych Psych: Normal mood, Normal affect Results - Vitals Vitals: Vital Signs - 24 hr 10/28/20 10/28/20 08:37 09:15 Temperature 36.8 C Heart Rate 62 63 Respiratory 18 16 Rate Blood Pressure 154/59 H 151/77 H O2 Saturation 98 99 Oxygen O2 Source Room air PD MEDICAL DECISION MAKING - ED course ED course: 84-year-old woman presents with fall from sitting on the bed. Will obtain CTs to evaluate for traumatic injury. CT with T7 compression fracture. on patient reexamination she is completely nontender at T7. I d/w her that this likely is an old finding. Plan [facility] given no apparent traumatic injury from her fall. return precautions given. Departure - Departure Disposition: 01 Home, Self Care Clinical Impression: Fall from bed Condition: Stable Instructions: Falls Risks Prevent Comments: Ms. Anglin was seen in the emergency department after falling from bed. She does not appear to have any traumatic injury from this after having a CT of the chest, abdomen and pelvis. She does have a T7 compression fracture of the thoracic spine that appears to be old, since she does not have pain at that spot. She does not have any new broken ribs, but does have old rib fractures on the right side, that are not bothering her. We gave her tylenol in the ED with improvement in her pain on the left side. She can take Tylenol as needed for pain every 6 hours. Please have her follow-up with her doctor in regards to the incidental findings on her CT (enclosed in her discharge paperwork). Return to the emergency department if she develops any new or worsening symptoms or if you have any other concerns.
--- NOTE | 2020-10-28 09:30 | CT Report ---
PROCEDURE: CHEST WO INDICATIONS: fall from standing, L lower rib pain TECHNIQUE: Noncontrast 5 mm thick sections acquired from the pulmonary apices to the posterior costophrenic angl es. 7 mm thick coronal and sagittal MIP reformats were then acquired. For radiation dose reduction, the following was used: automated exposure control, adjustment of mA and/or kV according to patient size. COMPARISON: Correlation is made with the company abdomen and pelvis CT, 10/28/2020. Correlation is al so made with prior thoracic spine CT, 03/09/2019. FINDINGS: Image quality: Excellent. Lungs and pleura: Mild likely dependent atelectasis can be seen at the lung bases. No pleural effusio ns or pneumothorax. Central and peripheral airways are patent and normal in caliber. Mediastinum: Heart size is normal. No pericardial effusion. No mediastinal adenopathy by size crit eria. Calcified left perihilar lymph nodes are seen. Thoracic aorta and central pulmonary arteries a re normal in size. Atherosclerotic calcification is seen. Moderate coronary artery calcifications ar e seen. Esophagus is normal in caliber. There is a moderate hiatal hernia. Bones and chest wall: No suspicious bony lesions. At the inferior endplate of T7, there is a mild co mpression deformity seen, with approximately 20% loss of height. This is new compared to 2019. No acu te features are seen. At the superior endplate of L1, there is a remote appearing Schmorl's node, wit h 30-40% loss of height centrally, which is stable compared to 2019. Remote right posterior rib fract ures are seen. Mild levoconvex scoliotic curvature is seen. No axillary or supraclavicular adenopat hy by size criteria. The thyroid is normal in size and there are no incidental findings. Abdomen: Gallstones can be seen within the gallbladder. Calcified granulomas can be seen within the s pleen. The visualized portions of the upper abdominal structures are otherwise within normal limits. IMPRESSION: There is a compression deformity involving the inferior endplate of T7, which is new compared to 2019 . Given history, this is attributed to an acute compression deformity. Please correlate with focal te nderness. If clinically appropriate, a dedicated thoracic spine MRI could be considered for further evaluation (assuming that there is no contraindication). There is a stable, remote L1 superior endplate Schmorl's node. Remote right posterior rib fractures. Incidental note is made of: Likely dependent subpleural atelectasis Prior granulomatous exposure. Moderate hiatal hernia Gallstones Accessory calcification, including moderate coronary artery calcification Reviewed by: Jessee Greenwood MD on 10/28/2020 8:28 AM CHEN Approved by: Jessee Greenwood MD on 10/28/2020 8:28 AM CHEN Station ID: [id number]
--- NOTE | 2020-10-28 09:37 | CT Report ---
PROCEDURE: Abdomen/Pelvis WO INDICATIONS: fall from standing TECHNIQUE: Noncontrast 5 mm thick sections acquired from the diaphragms to the symphysis. 5 mm coronal and sagi ttal reformats were then performed. For radiation dose reduction, the following was used: automated exposure control, adjustment of mA and/or kV according to patient size. COMPARISON: Correlation is made with a complete chest CT, 10/28/2020. Correlation is also made with p rior lumbar spine CT examinations, 03/09/2019, 04/20/2020. FINDINGS: Image quality: Excellent. ABDOMEN: Lung bases: There is mild dependent atelectasis. Heart size is normal. A moderate hiatal hernia can be seen. Solid organs: Liver and spleen are normal in size. Calcified granulomas can be seen within the splee n. Gallbladder demonstrates gallstones within its lumen. Pancreas is normal in contours. No adrena l nodules. Kidneys are normal in size, without hydronephrosis. At the inferior pole of the right ki dney, nonobstructing stones are seen that measure up to 2 mm. Peritoneum and bowel: Unenhanced bowel loops demonstrate normal wall thickness and caliber. No free fluid or air. Diverticulosis can be seen, without april findings of active diverticulitis. There is a moderate amount of stool seen within the colon. Nodes and vessels: No retroperitoneal or mesenteric adenopathy by size criteria. Aorta and inferior vena cava are normal in caliber. Atherosclerotic calcification is seen. Miscellaneous: No ventral hernias. PELVIS: Genitourinary: Bladder wall thickness is normal. This patient is status post hysterectomy. No adnex al masses can be seen. Miscellaneous: No inguinal adenopathy. Bilateral fat-containing inguinal hernias can be seen. Bones: There is a remote compression of arteries seen involving the superior endplate of L1, which is stable compared to the prior CT examinations, with 30-40% loss of height centrally. There is an asso ciated Schmorl's node. No acute vertebral body compression of arteries can be seen. There is mild ret rolisthesis seen at L1-L2 and L2-L3. Degenerative changes are seen throughout, which are most focal a t the L5-S1 level. Focal right hip degenerative change is seen. Mild to moderate levoconvex lumbar sc oliosis can be seen. IMPRESSION: No acute fracture is seen. Remote superior endplate compression deformity of L1, with an associated Schmorl's node. Mild to moderate levoconvex scoliosis can be seen. There is a moderate amount of stool seen within the colon. Please correlate with clinical constipatio n. Incidental note is made of: Moderate hiatal hernia Gallstones Prior granulomatous exposure. Nonobstructing right-sided kidney stones Atherosclerotic calcification Diverticulosis, without paril findings of active diverticulitis. Mild retrolisthesis at L1-L2 and L2-L3 Focal L5-S1 degenerative change Hysterectomy Bilateral fat-containing inguinal hernias Focal right hip degenerative change Reviewed by: Jessee Greenwood MD on 10/28/2020 8:36 AM CHEN Approved by: Jessee Greenwood MD on 10/28/2020 8:36 AM CHEN Station ID: [id number]
[2020-10-28 10:27] VITALS: BP 141/70
== END 2020-10-28 11:12 | disposition home or self-care (01) ==
LOC: EDUNIT# → ED 08:26
DX: M48.54XA Collapsed vertebra, not elsewhere classified, thoracic region, initial encounter for fracture (principal); W06.XXXA Fall from bed, initial encounter; Y93.F9 Activity, other caregiving; Y92.099 Unspecified place in other non-institutional residence as the place of occurrence of the external cause; I69.354 Hemiplegia and hemiparesis following cerebral infarction affecting left non-dominant side; F01.50 Vascular dementia, unspecified severity, without behavioral disturbance, psychotic disturbance, mood disturbance, and anxiety; N18.30 Chronic kidney disease, stage 3 unspecified
CPT/HCPCS: 71250; 74176; 99281; 99284; A9270

== ENCOUNTER 2020-12-18 13:35 | Outpatient (CLI) | payer MEDICARE ==
--- NOTE | 2020-12-18 16:47 | CONSULTATION NOTE ---
Palliative Care Follow Up - Referral Referring Provider: NORMA Mendez Time of Visit: Initiated 1335 Referral setting: Assisted living Referral Reason: Vascular Dementia/Chronic Back Pain - Information Sources Records reviewed: Previous records reviewed History/Review of Systems obtained from: Patient, Nursing (CRAYON SAWYER Alejandra) Exam limitations: Clinical condition (Advanced Dementia) - History of Present Illness Update Brief HPI Update: This is an 85-year-old female who is seen in follow-up today with an [facility] due to vascular dementia and chronic back pain. The patient unfortunately demonstrated signs and symptoms of progression of her dementia that ultimately resulted in a transition from her home where she was residing with her spouse with caregiving support to [facility] in October 2020. The patient has adapted to her new environment and she herself reports that she is presently content. She does have a history of frequent falls. She had a fall 10/28/2020 that resulted in an ER visit for evaluation after having a ground-level fall off her bed. CT imaging demonstrated at T7 compression fracture that was likely old. She is presently on acetaminophen 500 mg twice daily with noted benefit per the patient and facility staff. The patient is seen sitting up in bed watching TV, well-groomed. She is consuming approximately 25% of her lunch. No evidence of acute distress. 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 Social History - Living Situation Living arrangement: At home Living Situation: With spouse/s.o. Support System: The patient and her spouse, Kristopher have been for 33 years and have no children together. The patient has a daughter from a previous relationship who resides in [place] whom she is estranged from and does not have contact with. 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 She relocated to [facility] In October 2020. Her visits her regularly to sit with her and brings her reaves. Medications/Allergies - Medications Home Medications: Ambulatory Orders Medication Instructions Recorded Confirmed Aspirin [Aspir 81] 81 mg PO DAILY 02/07/14 10/28/20 Omeprazole [PriLOSEC] 20 mg PO DAILY 02/07/14 10/28/20 Acetaminophen [Acetaminophen Extra 500 mg PO BID MDD NTE 3g total in 07/04/20 10/28/20 Strength] 24h Atorvastatin [Lipitor] 10 mg PO DAILY 07/04/20 10/28/20 Nitrofurantoin Macrocrystal 50 mg PO DAILY 07/04/20 10/28/20 [Macrodantin] Docusate Sodium 100Mg Capsule 100 mg PO DAILY 09/27/20 10/28/20 [Colace 100Mg Capsule] Acetaminophen [Acetaminophen Extra 500 mg PO Q4H PRN MDD NTE 3g daily 12/18/20 12/18/20 Strength] Bisacodyl Supp [Dulcolax Supp] 10 mg [place] Q48H PRN 12/18/20 12/18/20 Senna [Senokot] 8.6 mg PO BID PRN 12/18/20 12/18/20 Senna [Senokot] 8.6 mg PO Q48H 12/18/20 12/18/20 - Allergies Allergies/Adverse Reactions: Allergies Allergy/AdvReac Type Severity Reaction Status Date / Time venlafaxine AdvReac Dizziness Verified 10/28/20 08:37 Review of Systems - Constitutional Constitutional: reports: Fatigue (taking more naps during the day), Weight stable (12/07/2020 128.4lb). denies: Fever, Poor appetite - Eyes Eyes: reports: Corrective lenses - Ears, Nose & Throat Ears, Nose & Throat: reports: Hearing loss. denies: Hearing aids (does not wear her hearing aids) - Cardiovascular Cardiovascular: denies: Edema - Respiratory Respiratory: denies: Cough - Gastrointestinal Gastrointestinal: reports: Good appetite. denies: Constipation (on daily colace with bowel movement every other to 3 days), Vomiting (history of spontaneous vomiting after CVA) - Genitourinary Genitourinary: reports: Incontinence. denies: Dysuria, Hematuria - Musculoskeletal Musculoskeletal: reports: Back pain (controlled with routine acetaminophen), Stiffness, Assistive devices (uses rollator for ambulation), Other (last fall 10/28 with ER visit). denies: Joint pain - Integumentary Integumentary: reports: Dryness - Neurological Neurological: reports: General weakness, Memory problems. denies: Headache - Psychiatric Psychiatric: reports: Depression (history of depression) - Endocrine Endocrine: denies: Diabetes type 2 - Hematologic/Lymphatic Hematologic/Lymph: reports: Recurrent infections (UTIs on daily macrobid for suppression) - All Other Systems All Other Systems: reports: Reviewed and negative (Patient is a poor historian due to vascular dementia and review of systems is supplemented by MELVINA Roebrts) Physical Exam - Vital Signs Temperature: 36.2 C Pulse Rate: 64 O2 Saturation: 98 (on RA) Blood Pressure: 132/62 (left arm) - Physical Exam General Appearance: positive: No acute distress, Alert, Other (b/l temporal wasting, well groomed, frail) Eyes Bilateral: positive: Normal inspection ENT: positive: No signs of dehydration Neck: positive: Trachea midline Cardiovascular: positive: Regular rate & rhythm Respiratory: positive: No respiratory distress, Breath sounds nml. negative: Wheezes Abdomen: positive: Non-tender, Soft, Nml bowel sounds Skin: positive: Pallor Extremities: positive: Pedal edema (Trace bilateral pedal edema), Other (+DJD changes to b/l hands) Neurologic/Psychiatric: positive: Mood/affect nml, Disoriented to time, Weakness, Other (Pleasantly confused) Palliative Care - POLST Patient has POLST: Yes POLST Status: DNR, Comfort Measures Pain: Pain improved (back pain,chronic. Controlled with routine acetaminophen 500mg BID) Constipation: Intermittent constipation Performance Status: Patient is ambulatory with her Rollator. History of frequent falls. Does not require any assistance with feeding. Urinary incontinence. - Palliative Care Discussion: Patient is made a transition to [facility] for additional oversight as the patient's underlying vascular dementia symptoms progressed. She has transitioned well to her new home environment. Her spouse is consistent in regards to visiting her in the facility. The patient demonstrates intermittent constipation and would benefit from introduction of senna 8.6 mg every other evening to reduce the risk of increased symptoms of constipation. Patient denies any signs or symptoms of abdominal pain. Impression and Recommendations - Palliative Care Impression: This is a farnaz 85-year-old female with a history of vascular dementia, CVA with residual effects, history of frequent falls and urinary tract infections who continues to have a slow, functional and cognitive decline. She is transitioned well to her new home setting in [facility]. Her chronic back pain and history of compression fracture is controlled with routine acetaminophen. Palliative care will continue to provide support regarding goals of care, care coordination, pain and symptom management as well as anticipatory guidance. Recommendations/Counseling Done: 1. Low back pain, chronic. Tolerating routine acetaminophen 500 mg twice daily. Has available acetaminophen 500 mg every 4 hours as needed for pain not to exceed 3 g of acetaminophen daily from all sources. Patient spouse/DPOA has reported a preference to avoid opioid therapies due to past experiences in the past. Continue to monitor and adjust pain regimen to optimize the patient's comfort and function. 2. Constipation. Continue Colace 100 mg daily. Initiate senna 8.6 mg 1 tablet every other day for bowel regulation. Continue senna 8.6 mg twice daily as needed for constipation. Continue to monitor bowel regimen and adjust accordingly. 3. Vascular dementia with history of CVA contributing. Chronic. Progressive. Fall precautions. On no disease modifying agents. No behavioral concerns reported by facility staff. Given the patient's advanced age and chronic comorbidities a gradual decline is expected. CPT 02226. Contacted the patient's spouse, Manuel at [phone] who discussed patient's adjustments and plan of care awaiting return call. Made MELVINA Roberts aware of of changes to plan of care with questions answered and addressed. Disclaimer: The chart note was formulated using voice recognition technology and unfortunately sound alike errors may occur.
== END 2020-12-18 13:36 | disposition home or self-care (01) ==
LOC: PC 13:35
PROVIDERS: ATTEND Nurse Practitioner Family
DX: Z51.5 Encounter for palliative care (principal); M54.5 Low back pain; G89.29 Other chronic pain; K59.00 Constipation, unspecified; F01.50 Vascular dementia, unspecified severity, without behavioral disturbance, psychotic disturbance, mood disturbance, and anxiety; Z86.73 Personal history of transient ischemic attack (TIA), and cerebral infarction without residual deficits; Z92.83 Personal history of failed moderate sedation; Z66 Do not resuscitate

== ENCOUNTER 2021-01-23 11:25 | Emergency (ER) | payer MEDICARE ==
--- NOTE | 2021-01-23 11:28 | ED Physician Documentation ---
PD HPI URI - Stated complaint Stated Complaint: C+ INFUSION - History obtained from History obtained from: Patient - History of Present Illness Timing - onset: How many days ago (onset illness few days ago. Tested positive for COVID rapid test at [facility] 2 days ago.) Timing duration: Days (has had some URI symptoms for couple days. Sats good. Here for MAB infusion mainly.) Timing details: Gradual onset Associated symptoms: Nasal congestion, Dry cough. No: Fever, NVD Contributing factors: Sick contact (one of the caregivers at [facility] tested positive, so the facility was testing everyone to see.) Similar symptoms before: Has not had sx before Recently seen: Not recently seen (had rapid test done at [facility].) Review of Systems Constitutional: denies: Fever Nose: reports: Congestion Cardiac: denies: Chest pain / pressure Respiratory: reports: Cough. 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, 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 HEENT: Tonsil/Adenoidectomy Derm: Other (Moh's surgery 2012) - Present Medications Home Medications: Ambulatory Orders Medication Instructions Recorded Confirmed Aspirin [Aspir 81] 81 mg PO DAILY 02/07/14 10/28/20 Omeprazole [PriLOSEC] 20 mg PO DAILY 02/07/14 10/28/20 Acetaminophen [Acetaminophen Extra 500 mg PO BID MDD NTE 3g total in 07/04/20 10/28/20 Strength] 24h Atorvastatin [Lipitor] 10 mg PO DAILY 07/04/20 10/28/20 Nitrofurantoin Macrocrystal 50 mg PO DAILY 07/04/20 10/28/20 [Macrodantin] Docusate Sodium 100Mg Capsule 100 mg PO DAILY 09/27/20 10/28/20 [Colace 100Mg Capsule] Acetaminophen [Acetaminophen Extra 500 mg PO Q4H PRN MDD NTE 3g daily 12/18/20 12/18/20 Strength] Bisacodyl Supp [Dulcolax Supp] 10 mg [place] Q48H PRN 12/18/20 12/18/20 Senna [Senokot] 8.6 mg PO BID PRN 12/18/20 12/18/20 Senna [Senokot] 8.6 mg PO Q48H 12/18/20 12/18/20 - Allergies Allergies/Adverse Reactions: Allergies Allergy/AdvReac Type Severity Reaction Status Date / Time venlafaxine AdvReac Dizziness Verified 01/23/21 12:13 - Social History Does the pt smoke?: No Smoking Status: Never smoker Does the pt drink ETOH?: Yes Does the pt have substance abuse?: No - Immunizations Immunizations are current?: Yes - POLST Patient has POLST: Yes PD ED PE NORMAL - Vitals Vital signs reviewed: Yes - General General: Alert and oriented X 3, No acute distress, Well developed/nourished - Respiratory Respiratory: Clear bilaterally - Abdomen Abdomen: Soft, Non tender - Derm Derm: Normal color, Warm and dry - Extremities Extremities: No edema - Neuro Neuro: Alert and oriented X 3, No motor deficit, Normal speech Results - Vitals Vitals: Vital Signs - 24 hr 01/23/21 01/23/21 01/23/21 12:13 12:15 14:15 Temperature 36.6 C 36.6 C 36.5 C Heart Rate 60 60 60 Respiratory 16 16 14 Rate Blood Pressure 137/66 H 137/66 H 154/71 H O2 Saturation 99 99 100 Oxygen O2 Source Room air PD MEDICAL DECISION MAKING - ED course Complexity details: considered differential (He is here for monoclonal antibody therapy with a positive Covid test 2 days ago. Mildly symptomatic at most. She does qualify for the infusion.), d/w patient Departure - Departure Disposition: 01 Home, Self Care Clinical Impression: COVID-19 virus infection Condition: Stable Record reviewed to determine appropriate education?: Yes Comments: With your usual medications and treatments. Follow-up if worsening symptoms overall.
[2021-01-23] MEDS ORDERED: CASIRIVIMAB/IMDEVIMAB 10 ML in SODIUM CHLORIDE 0.9% 50 ML IV ONE (12:30)
[2021-01-23 14:19] VITALS: BP 154/71
== END 2021-01-23 14:32 | disposition home or self-care (01) ==
LOC: ED 11:25
DX: U07.1 COVID-19 (principal)
CPT/HCPCS: 99283; 99284; J7040; M0243; Q0244

== ENCOUNTER 2021-04-12 16:00 | Outpatient (CLI) | payer MEDICARE ==
--- NOTE | 2021-04-12 17:32 | CONSULTATION NOTE ---
Palliative Care Follow Up - Referral Referring Provider: NORMA Mendez Time of Visit: Initiated 1600 Referral setting: Assisted living Referral Reason: Vascular Dementia/Constipation/GERD - Information Sources Records reviewed: Previous records reviewed History/Review of Systems obtained from: Patient, Nursing (MELVINA Parra) Exam limitations: Clinical condition (Advanced Dementia) - History of Present Illness Update Brief HPI Update: This is a farnaz 85-year-old female who was seen in follow-up today at [facility] due to vascular dementia, constipation, and GERD. Provider wore N95 mask. Patient goes by "Princess." Due to the patient's progressing vascular dementia as she transitions from home, where she was residing with her spouse with caregiving support, to [facility] in October 2020. She does have a history of frequent falls. Last noninjury fall reported as 02/21/2021. Patient was seen and evaluated by podiatry on 02/10/2021. She was positive with a rapid Covid test and was seen and evaluated at [facility] emergency department on January 23 for monoclonal antibody infusion. The patient had minimal symptom burden from contracture of Covid10. The patient has a history of constipation. Presently with a bowel movement approximately every 3 days on Dukas 8 100 mg daily and senna every other day. Her weight is holding steady with last recorded 128.6 pounds on 04/09. Patient is seen sitting up in bed reading a newspaper, well-groomed. No evidence of acute distress. 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 COVID-19 booster 04/10/21 Social History - Living Situation Living arrangement: At home Living Situation: With spouse/s.o. Support System: The patient and her spouse, Kristopher have been for 33 years and have no children together. The patient has a daughter from a previous relationship who resides in [place] whom she is estranged from and does not have contact with. 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 She relocated to [facility] In October 2020. Medications/Allergies - Medications Home Medications: Ambulatory Orders Medication Instructions Recorded Confirmed Aspirin [Aspir 81] 81 mg PO DAILY 02/07/14 10/28/20 Omeprazole [PriLOSEC] 20 mg PO DAILY 02/07/14 10/28/20 Acetaminophen [Acetaminophen Extra 500 mg PO BID MDD NTE 3g total in 07/04/20 10/28/20 Strength] 24h Atorvastatin [Lipitor] 10 mg PO DAILY 07/04/20 10/28/20 Nitrofurantoin Macrocrystal 50 mg PO DAILY 07/04/20 10/28/20 [Macrodantin] Docusate Sodium 100Mg Capsule 100 mg PO DAILY 09/27/20 10/28/20 [Colace 100Mg Capsule] Acetaminophen [Acetaminophen Extra 500 mg PO Q4H PRN MDD NTE 3g daily 12/18/20 12/18/20 Strength] Bisacodyl Supp [Dulcolax Supp] 10 mg MO Q48H PRN 12/18/20 12/18/20 Senna [Senokot] 8.6 mg PO BID PRN 12/18/20 12/18/20 Senna [Senokot] 8.6 mg PO Q48H 12/18/20 12/18/20 - Allergies Allergies/Adverse Reactions: Allergies Allergy/AdvReac Type Severity Reaction Status Date / Time venlafaxine AdvReac Dizziness Verified 01/23/21 12:13 Review of Systems - Constitutional Constitutional: reports: Weight stable (128.6lb 04/09/2021; 12/07/2020 128.4lb). denies: Fever - Eyes Eyes: reports: Corrective lenses - Ears, Nose & Throat Ears, Nose & Throat: reports: Hearing loss. denies: Hearing aids (does not wear her hearing aids) - Cardiovascular Cardiovascular: denies: Chest pain, Edema - Respiratory Respiratory: denies: Wheezing - Gastrointestinal Gastrointestinal: reports: Constipation (see HPI), Good appetite. denies: Abdominal pain, Vomiting (history of spontaneous vomiting after CVA) - Genitourinary Genitourinary: reports: Incontinence. denies: Dysuria - Musculoskeletal Musculoskeletal: reports: Stiffness, Assistive devices (uses rollator for ambulation), Other (history of falls, see HPI). denies: Back pain (controlled with routine acetaminophen), Joint pain - Integumentary Integumentary: reports: Dryness - Neurological Neurological: reports: General weakness, Memory problems - Psychiatric Psychiatric: reports: Depression (history of depression) - Hematologic/Lymphatic Hematologic/Lymph: reports: Recurrent infections (UTIs on daily macrobid for suppression) - All Other Systems All Other Systems: reports: Reviewed and negative (Patient is a poor historian due to vascular dementia and review of systems is supplemented by MELVINA Parra.) Physical Exam - Vital Signs Temperature: 36.8 C Pulse Rate: 70 O2 Saturation: 96 (on RA) Blood Pressure: 125/81 - Physical Exam General Appearance: positive: No acute distress, Alert, Other (b/l temporal wasting, well groomed, frail) Eyes Bilateral: positive: Normal inspection ENT: positive: No signs of dehydration Neck: positive: Trachea midline Cardiovascular: positive: Regular rate & rhythm, No murmur Respiratory: positive: No respiratory distress, Breath sounds nml Abdomen: positive: Non-tender, Soft, Nml bowel sounds. 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 The patient herself does not perceive any abdominal pain and her weight is holding steady at 128.6 pounds in April 2021. She has transitioned well to her new living environment and staff offer no acute concerns. Impression and Recommendations - Palliative Care Impression: This is a farnaz 85-year-old female with a history of vascular dementia, CVA with residual effects, history of frequent falls and constipation who has had a slow, functional and cognitive decline. She has a history of chronic back pain that is controlled with routine acetaminophen. Her bowel Regimen has improved her frequency of defecation. Palliative care will continue to provide support for care coordination, pain and symptom management as well as anticipatory guidance. Recommendations/Counseling Done: 1.GERD. Controlled. Continue Omeprazole 20 mg daily. 2.History of falls. Falls unavoidable due to dementia. Continue to encourage to call for assistance. 3. Constipation. Continue Colace 100 mg daily. Continue senna 8.6 mg 1 tablet every other day for bowel regulation. Continue senna 8.6 mg twice daily as needed for constipation. Continue to monitor bowel regimen and adjust accordingly. 4. Vascular dementia with history of CVA contributing. Chronic. Progressive. Fall precautions. No disease modifying agents. No behavioral concerns reported by facility staff. Given the patient's advanced age and chronic comorbidities a gradual decline is expected. CPT 94396 No changes to plan of care at the present time. Disclaimer: The chart note was formulated using voice recognition technology and unfortunately sound alike errors may occur.
== END 2021-04-12 16:01 | disposition home or self-care (01) ==
LOC: PC 16:00
PROVIDERS: ATTEND Nurse Practitioner Family
DX: Z51.5 Encounter for palliative care (principal); F01.50 Vascular dementia, unspecified severity, without behavioral disturbance, psychotic disturbance, mood disturbance, and anxiety; K21.9 Gastro-esophageal reflux disease without esophagitis; K59.00 Constipation, unspecified; Z91.81 History of falling; M54.9 Dorsalgia, unspecified; G89.29 Other chronic pain; Z86.16 Personal history of COVID-19; E78.5 Hyperlipidemia, unspecified; I69.354 Hemiplegia and hemiparesis following cerebral infarction affecting left non-dominant side; R32 Unspecified urinary incontinence; N18.30 Chronic kidney disease, stage 3 unspecified; Z79.2 Long term (current) use of antibiotics; Z87.440 Personal history of urinary (tract) infections; Z79.82 Long term (current) use of aspirin; Z79.899 Other long term (current) drug therapy; Z66 Do not resuscitate

== ENCOUNTER 2022-06-24 08:56 | Emergency (ER) | payer MEDICARE ==
[2022-06-24 09:05] VITALS: BP 138/78
--- NOTE | 2022-06-24 09:06 | ED Physician Documentation ---
PD HPI LOWER EXT INJURY - Stated complaint Stated Complaint: FALL/KNEE PX - History obtained from History obtained from: Patient, EMS - History of Present Illness PD HPI LOW EXT INJURY LOCATION: Left, Knee Type of injury: Fall Where injury occurred: Home Timing - onset: Yesterday Timing - duration: Days (1) Timing - details: Abrupt onset, Still present Improved by: Rest, Immobilization Worsened by: Moving, Palpating Associated symptoms: Swelling, Discolored Similar symptoms before: Has not had sx before Recently seen: Not recently seen - Additional information Additional information: Linnette Verdin is an 86-year-old female who is a resident of memory care she has help fall yesterday and has injured her left knee. She is unable to bear weight secondary to the pain. There is report that she may have bared weight yesterday after this fall. Today she is on willing to bear weight. 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, 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 HEENT: Tonsil/Adenoidectomy Derm: Other (Moh's surgery 2012) - Present Medications Home Medications: Ambulatory Orders Medication Instructions Recorded Confirmed Aspirin [Aspir 81] 81 mg PO DAILY 02/07/14 10/28/20 Omeprazole [PriLOSEC] 20 mg PO DAILY 02/07/14 10/28/20 Acetaminophen [Acetaminophen Extra 500 mg PO BID MDD NTE 3g total in 07/04/20 10/28/20 Strength] 24h Atorvastatin [Lipitor] 10 mg PO DAILY 07/04/20 10/28/20 Nitrofurantoin Macrocrystal 50 mg PO DAILY 07/04/20 10/28/20 [Macrodantin] Docusate Sodium 100Mg Capsule 100 mg PO DAILY 09/27/20 10/28/20 [Colace 100Mg Capsule] Acetaminophen [Acetaminophen Extra 500 mg PO Q4H PRN MDD NTE 3g daily 12/18/20 12/18/20 Strength] Bisacodyl Supp [Dulcolax Supp] 10 mg CA Q48H PRN 12/18/20 12/18/20 Senna [Senokot] 8.6 mg PO BID PRN 12/18/20 12/18/20 Senna [Senokot] 8.6 mg PO Q48H 12/18/20 12/18/20 - Allergies Allergies/Adverse Reactions: Allergies Allergy/AdvReac Type Severity Reaction Status Date / Time venlafaxine AdvReac Dizziness Verified 06/24/22 09:05 - Social History Does the pt smoke?: No Smoking Status: Never smoker Does the pt drink ETOH?: Yes Does the pt have substance abuse?: No - Immunizations Immunizations are current?: Yes - POLST Patient has POLST: Yes PD ED PE NORMAL - Vitals Vital signs reviewed: Yes - General General: No acute distress, Well developed/nourished - HEENT HEENT: Atraumatic, PERRL, EOMI - Respiratory Respiratory: No respiratory distress - Derm Derm: Normal color, Warm and dry, No rash - Extremities Extremities: Other (There is swelling to the left knee and ecchymosis to the inferior aspect of the lateral portion of the knee below the patella. There is pain to flexion extension and any movement of the knee. ) - Neuro Neuro: No motor deficit, No sensory deficit Eye Opening: Spontaneous Motor: Localizes to Pain Verbal: Confused GCS Score: 13 - Psych Psych: Normal mood, Normal affect Results - Vitals Vitals: Vital Signs - 24 hr 06/24/22 09:00 Temperature 36.7 C Heart Rate 78 Respiratory 16 Rate Blood Pressure 138/78 H O2 Saturation 97 Oxygen O2 Source Room air - Rads (name of study) knee Radiology: Prelim report reviewed (Impression: Small knee joint effusion. No fracture visualized. If pain persist, consider repeat imaging in 5 to 7 days.), EMP read indepedently PD Medical Decision Making - ED course Complexity details: reviewed old records, reviewed results, re-evaluated patient, considered differential Social Determinants of Health: The patient is in memory care and she is unlikely to be able to help much in her recovery. ED course: 86-year-old female in memory care without recall of a specific injury has a bruise to her left knee and is having difficulty bearing weight. She does appear to have pain to her knee as well as some ecchymosis and an x-ray demonstrates presence of a joint effusion. There is no evidence of a fracture. The patient is placed into a knee immobilizer. She is diagnosed with a sprain of the left knee. Departure - Departure Disposition: 01 Home, Self Care Clinical Impression: Sprain of left knee Qualifiers: Encounter type: initial encounter Involved ligament of knee: unspecified ligament Qualified Code(s): S83.92XA - Sprain of unspecified site of left knee, initial encounter Condition: Stable Instructions: ED Sprain Knee Follow-Up: RICHI GILBERT ARNP [Primary Care Provider] - Comments: Today it appears Linnette has sprained her left knee. She may not want to bear weight on this we have placed her into a knee immobilizer and this may help her be able to bear weight. The expectation is improvement over a week's period of time and a follow-up for worsening or poor progression is indicated. Discharge Date/Time: 06/24/22 10:57
--- NOTE | 2022-06-24 09:41 | XRAY Report ---
PROCEDURE: Knee 4 View LT INDICATIONS: fall swelling pain TECHNIQUE: 4 views of the left knee(s) were acquired. COMPARISON: None. FINDINGS: Bones: No fractures or dislocations. No suspicious bony lesions. Soft tissues: There is a small joint effusion. No suspicious soft tissue calcifications. IMPRESSION: Small knee joint effusion. No fracture visualized. If pain persists, consider repeat kristen ging in 5-7 days. Reviewed by: Petra Humphrey MD on 06/24/2022 9:39 AM [facility] Approved by: Petra Humphrey MD on 06/24/2022 9:39 AM [facility] Station ID: [id number]
== END 2022-06-24 10:57 | disposition home or self-care (01) ==
LOC: EDUNIT# → ED 08:56
DX: S83.92XA Sprain of unspecified site of left knee, initial encounter (principal); W19.XXXA Unspecified fall, initial encounter
CPT/HCPCS: 99283